=== PATIENT | female | born 1995 | race Caucasian/White ===

== ENCOUNTER → 2018-06-21 16:53 | Outpatient (CLI) | payer OTHER, SELFPAY ==
[2018-06-20 14:13] VITALS: BMI 24.5
[2018-06-21 20:07] LABS: Chlamydia Trachomatis by PCR Negative (Negative); Neisserai gonorrhoeae by PCR Negative (Negative); Probe Check PASS; Sample Adequacy Control PASS; Specimen Processing Control PASS
--- OUTSIDE RECORDS SUMMARY | 2018-08-07 14:24 | XMS RPT_ITS ---
:1995 Author Organization OHIP Care Team Providers Name Role Phone Lucero Ambrosio Attending Unavailable DARVIN, ZOE Referring Unavailable Marcanthony, Lucero Attending Unavailable Marcanthony, Lucero Referring Unavailable Marcanthony, Lucero Attending Unavailable DARVIN, ZOE Referring Unavailable Marcanthony, Lucero Attending Unavailable Marcanthony, Lucero Referring Unavailable DARVIN, ZOE Primary Care Unavailable Kahlil Lopez Attending Unavailable Saldana, Ben Primary Care Unavailable Pavithra East Attending Unavailable Saldana, Ben Primary Care Unavailable Pavithra East Admitting Unavailable Pavithra East Admitting Unavailable Pavithra East Attending Unavailable Saldana, Ben Primary Care Unavailable PROBLEMS PROBLEMS DATE TYPE CONDITION / CODE ATTENDING STATUS SOURCE 07/19/2018 Unknown Z3A.13 - 13 weeks Marcanthony, Active [place] gestation of [facility] / Hospital Z3A.13(ICD-10) Repository 07/19/2018 Unknown Z34.81 - Marcanthony, Active [place] Encounter for [facility] other normal Repository , first trimester / Z34.81(ICD-10) 07/19/2018 Unknown O23.41 - Marcanthony, Active [place] Unspecified [facility] infection of Hospital urinary tract in Repository , first trimester / O23.41(ICD-10) 07/19/2018 Unknown B95.1 - Hebert, Active [place] Streptococcus, [facility] group B, as the Hospital cause of diseases Repository classified elsewhere / B95.1(ICD-10) 06/21/2018 Unknown Z34.90 - Hebert, Active [place] Encounter for [facility] normal , Repository unspecified, unspecified trimester / Z34.90(ICD-10) PROCEDURES PROCEDURES No Procedure Records FoundRESULTS RESULTS CBC W/DIFF, AUTOMATED Collected: 07/19/2018 Status: F Source: [place] 4:51 PM [facility] TYPE CODE TESTS RESULT OUT OF RANGE REFERENCE UNITS LAB L100.1000 4.4-11.0 K/mm3 Normal WBC 9.5 LAB L100.1200 4.2-5.4 M/mm3 Normal RBC 4.40 LAB L100.1300 12.0-15.0 g/dl Low HGB 11.3 LAB L100.1400 37-47 % Low HCT 35.7 LAB L100.1500 81-99 fL Normal MCV 81.1 LAB L100.1600 27.0-32.0 pg Low MCH 25.7 LAB L100.1700 32-36 g/gl Low MCHC 31.7 LAB L100.1810 11.6-14.6 % High RDW CV 15.3 LAB L100.1820 35.1-43.9 fl High RDW SD 45.3 LAB L100.1900 150-450 K/mm3 Normal PLT 283 LAB L100.2000 6.2-12.0 fl Normal MPV 10.0 LAB L100.2100 47-70 % Normal NEUT% 56.0 LAB L100.2200 19-41 % Normal LY% 33.1 LAB L100.2300 0-10 % Normal MONO% 8.7 LAB L100.2400 0-5 % Normal EO% 1.5 LAB L100.2500 0-1 % Normal BASO% 0.5 LAB L100.2550 0.0-0.9 % Normal IM GRAN % 0.200 Result Comment: IG% - Immature Granulocytes (promyelocytes, myelocytes and metamyelocytes) > 1% indicates that a LEFT SHIFT is Present. LAB L100.2620 2.0-7.7 X10 3/uL Normal Absolute Neut 5.3 LAB L100.2720 0.83-4.51 X10 3/ul Normal Absolute Lymph 3.13 Performed By: #### L100.0100 #### [facility] [address] [place], [address] RUBELLA IGG Collected: 07/19/2018 Status: F Source: [place] 4:51 PM [facility] TYPE CODE TESTS RESULT OUT OF RANGE REFERENCE UNITS LAB L509.4000 IU/mL Normal Rubella IgG 39.8 Result Comment: Antibody results Interpretation of Immune Status < 5 IU/ml Presumed Non-immune 5 - < 10 IU/ml Equivocal > or = 10 IU/ml Presumed Immune Performed By: #### L509.4000, L3890.6005 #### [facility] [id number] HIV - [facility] Collected: 07/19/2018 Status: F Source: [place] 4:51 PM [facility] TYPE CODE TESTS RESULT OUT OF RANGE REFERENCE UNITS LAB L3890.6005 Nonreactive Normal HIV - [facility] Non-Reactive Performed By: #### L509.4000, L3890.6005 #### [facility] [address] [place] [address] [id number] TYPE AND SCREEN Collected: 07/19/2018 Status: F Source: [place] 4:51 PM [facility] Order Comment: Reason for Type AND Screen/Red Cells: TYPE CODE TESTS RESULT OUT OF RANGE REFERENCE UNITS LAB B10.0800 O Normal BLOOD TYPE GEL POSITIVE LAB B100.4000 Normal Antibody NEGATIVE Screen Performed By: #### B101.7450 #### [facility] [address] RAPID PLASMIN REAGIN Collected: 07/19/2018 Status: F Source: [place] (RPR) 4:51 PM [facility] TYPE CODE TESTS RESULT OUT OF REFERENCE UNITS RANGE LAB L700.5000 NONREACTIVE NONREACTIVE Normal RPR Performed By: #### L700.5000 #### [facility]. [facility] [id number] HEPATITIS B SURFACE Collected: 07/19/2018 Status: F Source: [place] AG 4:51 PM [facility] TYPE CODE TESTS RESULT OUT OF RANGE REFERENCE UNITS LAB L3100.0400 Negative Normal HB Negative SURF AG Result Comment: Performed at: - [facility] [address] [id number] [place] Follower: Yobani Humphreys PhD, Phone: [phone] Performed By: #### L3100.0390 #### [facility] (refer to report for specific site) refer to report for address and phone number CENTRAL OFFICE OPERATOR SUPERVISOR OFFICE VISIT Observed: 07/19/2018 Status: F Source: [place] REPORT 4:35 PM [facility] [address] [place] [address] OFFICE VISIT Date of Service: 07/19/18 MR#: [id number] Acct: [id number] Name: HAMILTONBOONE M Rep #: [id number] : 1995 Provider: Lucero Ambrosio MD Age/Sex: 23/F [place] [facility] [place]: Signed Intake Vital Signs07/19/18 Body Mass Index (BMI) 24.5 07/19/18 Height 5 ft 2 in 07/19/18 Weight: 142 lb 07/19/18 Body Mass Index (BMI) 25.9 07/19/18 Blood Pressure 122/68 H Intake Visit Reasons: OB Chief Complaint: est ob Self Propelled Hot Mix Roller Operator Required: No Is patient in pain?: No Allergies No Known Allergies Allergy (Verified 07/19/18 16:15) Medications vitamin#30 30 mg iron-10 mg iron-folic acid 1 mg- omg3 capsule cap PO cap 06/20/18 [History Confirmed 07/19/18] Last Menstral Period: 04/14/18 Zika: Zika virus screening: Negative : No PFSH PFSH Family History Grandmother Cancer Melanoma Unknown Hypertension Social History Smoking Status: Never smoker alcohol intake: never substance use type: does not use caffeine: Yes what type of physical activity do you participate in: walking seatbelt use: always do you feel safe at home: Yes 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 DatName GA/WeeksOutcome Route Bth WeigInhollandt Thad LgAnesthesDel LocaProviderFOB e ht en ia tn Unknown 2016 [address] Home bir ah th - ful th l term HPI OB: Details: BOONE VILLASENOR is a 23 year old who presents for routine OB visit. OB Visit FRED Calculator Estimated Delivery Date 01/19/19 Based on LMP (certain) 04/14/18 Current WG 13w 5d Number 1 Expected Delivery Route/Plan Specific Issue/Plans flu vaccine: declined tdap vaccine: [] rhogam: [] LARC form signed: [] labor support person: [] pain management: [] cut cord/dad catch: [] : [] PP control planned: [] discussed possible routes of delivery and associated risks: [] special requests: [] Initial Weight: Not Recorded Date Weight BP Urine PrFHR FuHt Pres MoCTX DilationFetal StVisit NoProviderComments E ot v te GA G Effac lucose ed Visit Notes Visit Date: 07/19/18 no vb cramping Lucero Ambrosio MD on 07/19/18 Visit Date: 06/20/18 No visit notes to display ACOG First Trimester First Trimester: Desire for , Alcohol, Tobacco Cessation, Illicit/Recreational Drug/Substance Use, Intimate Partner Violence, Barriers to care, Unstable Housing, Communication Barriers, Environmental/Work Hazards, Anticipated Course of Care, Toxoplasmosis Precations, Use of Any medications, Sexual activity, Exercise, Dental Care, Sauna/Hot tub use, Seat Belt use, Childbirth classes/Hospital facilities, , Travel, Indications for US and Screening for Aneuploidy Diagnostics Diagnostics Labs Chlam trachomat DNA PCR Negative (Negative) 06/21/18 N.gonorrhoeae DNA (PCR) Negative (Negative) 06/21/18 Details: HIV: Urine Culture: Sequential Screen: NIPT Screen: Results [id number] Office Urine Glucose Negative Last Edit by Brenda Serrano on 07/19/18 16:17 Office Urine Protein Negative Last Edit by Brenda Serrano on 07/19/18 16:17 Assessment AND Plan Problems 1. 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 anatomy us ordered. 2. Encounter for supervision of other normal in first trimester Z34.81 FRED 01/19/19 PC kenia Melania 3. Group B Streptococcus urinary tract infection affecting in first trimester O23.41; B95.1 treated, plan antibiotics in labor Plan ACOG trimester education reviewed and updated. see problem list details for updated plan management information and see below for orders placed at this visit. GA appropriate handout given. Orders Orders: Coding Level of Care Code OB Routine Diagnoses 13 weeks gestation of Z3A.13 Weeks of gestation: 13 weeks Encounter for supervision of other normal in first trimester Z34.81 Normal : other normal Trimester: first trimester Group B Streptococcus urinary tract infection affecting in first trimester O23.41; B95.1 Trimester: first trimester 07/19/18 1635 <Electronically signed by Lucero Ambrosio MD> Date Lucero Ambrosio MD Cosigner Signature: Date (if applicable) CC: CT/NG [facility] BY PCR Collected: 06/21/2018 Status: F Source: [place] 6:04 PM [facility] TYPE CODE TESTS RESULT OUT OF RANGE REFERENCE UNITS LAB L8200.2100 Negative Normal Chlam Negative Trac PCR LAB L8200.2200 Negative Normal NG by Negative PCR Performed By: #### L8200.2000 #### [facility] [address] [place], [address] Observed: 06/21/2018 Status: F Source: [place] CULTURE, URINE 6:04 PM [facility] Urine Culture ORGANISM 1: Streptococcus agalactiae (B) [place] Count <1000 Streptococcus agalactiae (B): REACTION Ampicillin $ <=0.25 S Inducable Clindamycin Resistan - Linezolid $$$$ <=2 S Vancomycin $ 0.5 S (NF) indicates non-formulary drug at [facility]. Approval by Infectious Disease Specialist required before non-formulary drugs may be ordered and/or dispensed. * CLSI guidelines does not recommend testing of cephalosporins. This interpretation is deduced from Beta-lactam/penicillin results. Performed By: #### M100.0650 #### [facility] [address] [place], [address] CENTRAL OFFICE OPERATOR SUPERVISOR OFFICE VISIT Observed: 06/20/2018 Status: F Source: [place] REPORT 4:15 PM [facility] [address] [place] [address] OFFICE VISIT Date of Service: 06/20/18 MR#: [id number] Acct: [id number] Name: BOONE VILLASENOR Rep #: [id number] : 1995 Provider: Lucero Ambrosio MD Age/Sex: 23/F [place] [facility] Status: Signed Intake Vital Signs06/20/18 Height 5 ft 2 in 06/20/18 Weight: 134 lb 06/20/18 Body Mass Index (BMI) 24.5 06/20/18 Blood Pressure 110/62 Intake Visit Reasons: NEW OB LMP 04/14/2018 Chief Complaint: NEW OB Self Propelled Hot Mix Roller Operator Required: No Is patient in pain?: No Allergies No Known Allergies Allergy (Unverified 06/20/18 14:14) Medications vitamin#30 30 mg iron-10 mg iron-folic acid 1 mg- omg3 capsule cap PO cap 06/20/18 [History Confirmed 06/20/18] Last Menstral Period: 04/14/18 Zika: Zika virus screening: Negative : No PFSH PFSH Family History Grandmother Cancer Melanoma Unknown Hypertension Social History Smoking Status: Never smoker alcohol intake: never substance use type: does not use caffeine: Yes what type of physical activity do you participate in: walking seatbelt use: always do you feel safe at home: Yes 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 DatName GA/WeeksOutcome Route [facility] Oneil LgAnesthesD LocaProviderFOB e ht en th ia tn Unknown 2017 Lil live birNSVD Home bir ah th - ful th l term HPI NEW OB LMP 04/14/2018: Details: BOONE VILLASENOR is a 23 year old who presents for New OB visit. OB Visit FRED Calculator Estimated Delivery Date 01/19/19 Based on LMP (certain) 04/14/18 Current WG 9w 4d Number 1 Comments: Limited transvaginal ultrasound performed to confirm EDC and viability. CRL is 20 mm measuring 9w5d which is consistent with LMP. FHTs 160. no gross abnormalities noted. Expected Delivery Route/Plan Specific Issue/Plans flu vaccine: declined tdap vaccine: [] rhogam: [] LARC form signed: [] labor support person: [] pain management: [] cut cord/dad catch: [] : [] PP control planned: [] discussed possible routes of delivery and associated risks: [] special requests: [] Initial Weight: Not Recorded Date Weight BP Urine PrFHR FuHt Pres MoCTX DilationFetal StVisit NoProviderComments E ot v te [place] G Effac lucose ed Menstrual History Last Menstral Period: 04/14/18 Reported LMP: definite Normal amount/duration: Yes On hormonal BC at conception: No Antepartum Record Genetic Screening: Congenital Heart Defect: Other, Neural Tube Defect: Other, Hemoglobinopathy Or Carrier: Other, Cystic Fibrosis: Other, Chromosome Abnormality: Other, Kevin-Sachs: Other, Hemophilia: Other, Intellectual Disability/Autism: Other, Recurrent Loss/Stillbirth: Other, Other Structural Defect: Other, Other Genetic Disease: Other, Maternal Metabolic Disorder: Other Infection History: Live with someone with TB or Exposed to TB: No, Patient or Partner has history of Genital Herpes: No, Rash or Viral illness since last mentrual period: No, Prior GBS-Infected child: No, History of STD: No, HIV Infection: No, History of Hepatitis: No, Recent travel outside of [place]: No, Concern for Hep exposure: No, Varicella immune: Yes Medical History Medical History: Negative: Diabetes, Hypertension, Heart disease, Auto-immune disorder, Kidney disease/UTI, Neurologic/epilepsy, Psychiatric, Depression/ depression, Hepatitis/liver disease, Varicosities/phlebitis, Thyroid dysfunction, Trauma/domestic violence, History of blood transfusions, D (Rh) Sensitized, Pulmonary (e.g.,TB,Asthma), Seasonal allergies, Drug/latex allergies/reactions, Breast, Drywall Finishing Foreman surgery, Operations/hospitalizations, Anesthetic complications, History of abnormal pap, Uterine anomaly/vasquez, Infertility, Anti-retroviral treatment, Relevant family history, Other ACOG First Trimester First Trimester: Desire for , Alcohol, Tobacco Cessation, Illicit/Recreational Drug/Substance Use, Intimate Partner Violence, Barriers to care, Unstable Housing, Communication Barriers, Environmental/Work Hazards, Anticipated Course of Care, Nurtrition and weight gain, Toxoplasmosis Precations, Use of Any medications, Sexual activity, Exercise, Dental Care, Sauna/Hot tub use, Seat Belt use, Childbirth classes/Hospital facilities, , Travel, Indications for US and Screening for Aneuploidy ROS Const Denies fever(s), Reports system reviewed and no additional complaints, except as docu, Reports fatigue Eyes Reports system reviewed and no additional complaints, except as docu ENT Reports system reviewed and no additional complaints, except as docu Card Denies chest pain, Denies shortness of breath Resp Reports system reviewed and no additional complaints, except as docu, Denies shortness of breath, Denies cough GI Reports nausea, Denies abdominal pain Reports system reviewed and no additional complaints, except as docu Musc Reports system reviewed and no additional complaints, except as docu Skin/Breast Reports system reviewed and no additional complaints, except as docu Neuro Yes system reviewed and no additional complaints, except as docu Psych Reports system reviewed and no additional complaints, except as docu Endo Reports fatigue, Reports system reviewed and no additional complaints, except as docu Exam Const General: healthy appearing, comfortable, no acute distress Orientation: alert [facility] Head: normal to inspection, atraumatic, normocephalic Ears: external ears normal, hearing grossly normal bilaterally Nose: nares normal, external nose normal Mouth: oral mucosae normal Teeth and gingiva: dentition normal Eyes General: appearance normal, both eyes and all related structures Neck Neck: no lymphadenopathy, supple, normal visual inspection Thyroid: thyroid normal Resp Effort AND Inspection: normal respiratory effort GI Inspection: normal to inspection Palpation: soft, no hepatosplenomegaly General: bladder normal to palpation External Female Exam: normal external appearance, normal appearance of the urethra Urethra: normal appearance of the urethra Speculum Exam - Vagina: normal appearance of the vagina, normal vaginal discharge Speculum Exam - Cervix: normal appearance of the cervix Bimanual Exam- Vagina AND Uterus: bladder normal to palpation, normal bimanual exam, uterus non-tender, other Bimanual Exam- Adnexa, other: adnexae non-tender Skin General: no rashes or lesions noted Neuro Motor: muscle tone normal throughout, no movement abnormalities noted Extrem General: normal to inspection, full ROM Assessment AND Plan Problems 1. Supervision of normal intrauterine in multigravida in first trimester Z34.81 2. 9 weeks gestation of Z3A.09 Orders Orders: Supplemental Info ACOG book given and patient encouraged to read about nutrition, exercise, weight gain, and food avoidance in . Coding Level of Care Code OB Routine Diagnoses Supervision of normal intrauterine in multigravida in first trimester Z34.81 Trimester: first trimester 9 weeks gestation of Z3A.09 Weeks of gestation: 9 weeks 06/20/18 1615 <Electronically signed by Lucero Ambrosio MD> Date Lucero Ambrosio MD Cosigner Signature: Date (if applicable) CC: IGP W/HPV RFX Collected: 09/18/2017 Status: F Source: [facility] [id number] 1:46 PM [facility] REPOSITORY TYPE CODE TESTS RESULT OUT OF RANGE REFERENCE UNITS LAB [id number]( INC) Normal See Ref Lab Diagnosis: Report Performed By: #### [id number] #### [place] [address] PATHOLOGY ([facility]) Observed: 09/18/2017 Status: F Source: [facility] 12:00 AM REPOSITORY FINAL GYNECOLOGIC CYTOLOGY REPORT [id number] SPECIMEN ADEQUACY Satisfactory for Evaluation. Endocervical cells/transformation zone component present. GENERAL CATEGORIZATION Negative for Intraepithelial Lesion or Malignancy CLINICAL HISTORY Comment: No LMP provided. SPECIMEN (A) SCREENING CERVICAL/ENDOCERVICAL LIQUID-BASED PAP Performed at [facility], [address] [place], [place] [address] Screened by: Signed Out by: DOUGLAS STARKS Branch Assistant Reported: 09/21/2017 Performed By: #### WHITE SHOE EXAMINER #### [facility] [address] [place] [address] ALLERGIES ALLERGIES DATE TYPE / CODE NAME / CODE REACTION SEVERITY SOURCE 07/19/2018 Drug No Known Unknown [place] Allergy/416 Allergies/X046443 [facility] 370249(SNOM 388(RXNORM) Hospital ED CT) Repository Drug/094680 No Known [facility] 003(SNOMED Allergies [facility] CT) System Repository Drug/461060 No Known [facility] 003(SNOMED Medication [facility]) Allergies System Repository ENCOUNTERS ENCOUNTERS ADMIT/DISCHARGE ACCOUNT NUMBER ADMITTING ENCOUNTER LOCATION SOURCE CLASS 07/19/2018 [id number] Ambulatory [facility] ding:LAB Repository 07/19/2018/07/19/19 [id number] Ambulatory BMSBuilding: [place] 19 BMS[facility] Repository 06/21/2018 [id number] Ambulatory [facility] ding:LABSPEC Repository 06/20/2018/06/20/20 [id number] Ambulatory BMSBuilding: [place] 18 BMS.[facility] Repository 09/26/2017/09/27/19 [id number] Ambulatory [address] [facility] :[facility] Repository 09/18/2017/09/19/[id number] ding:[facility] BANEY Repository 09/18/2017/09/19/[id number] [facility] rac[facility]: Room 1 PAYERS PAYERS ENCOUNTER GUARANTOR PAYER SUBSCRIBER SOURCE 07/19/2018 BOONE Greco [id number] Primary MELANIA EMSERDOB: [place] 1/2 [place] Insurance:MEDICAL [id number] [facility] [address]Ypq: (419) Number: Repository [phone] () [id number] Date:6875-34-43VT [address] [place] [address]HH: 07/19/2018 Secondary MELANIA EMSERDOB: [place] Insurance:STANDARD [id number] Number: [id number] Repository Date:7437-08-09[address] [place] [address]YJ: 07/19/2018 Tertiary NOT GIVENUNK [place] Insurance:SELF PAY [facility] Hospital Number: Effective Repository Date:2018-07-19 07/19/2018 BOONE Greco [id number] Primary MELANIA EMSERDOB: [place] 1/2 [place] Insurance:MEDICAL [id number] [facility] [address]Pnc: (419) Number: Repository [phone] () [id number] Date:7760-63-33GR [place] [id number]: 07/19/2018 Secondary MELANIA EMSERDOB: [place] Insurance:STANDARD [id number] Number: [id number] Repository Date:0260-09-75[facility] [place] [address]RA: 07/19/2018 Tertiary NOT GIVENUNK [place] Insurance:SELF PAY [facility] Hospital Number: Effective Repository Date:2018-07-19 06/21/2018 BOONE Fannie [id number] Primary MELANIA EMSERDOB: [place] 1/2 [place] Insurance:MEDICAL [id number] [facility] [address]Uel: (419) Number: Repository [phone] () [id number] Date:2385-07-36TZ [place] [id number]: 06/21/2018 Secondary MELANIA EMSERDOB: [place] Insurance:STANDARD [id number] Number: [id number] Repository Date:6738-34-53[address] [address]LPVLPAVMS DANIELLE [address]BZ: 06/21/2018 Tertiary NOT GIVENUNK [place] Insurance:SELF PAY [facility] Effective Repository Date:2018-06-21 06/20/2018 BOONE Greco [id number] Primary MELANIA EMSERDOB: [place] 1/2 [place] Insurance:MEDICAL [id number] [facility] [address]Ryt: (722) Number: Repository [phone] () [id number] Date:1927-30-32[address], [place] [address]WU: 06/20/2018 Secondary MELANIA EMSERDOB: [place] Insurance:STANDARD [id number] Number: [id number] Repository Date:5595-09-30Q[address] [place] [address]VB: 06/20/2018 Tertiary NOT GIVENUNK [place] Insurance:SELF PAY [facility] Number: Effective Repository Date:2018-05-16 09/26/2017 BOONE Greco Primary MELANIA R EMSERDOB: [place] EMSERDOB: Insurance:Medical [id number] [facility] Number: 12 [place] System 1/2 [place] Effective [place], [place] Repository [place], [place] Date:2017-09-12Tel: [phone]: [phone] () Name:[facility] ()Tel: (160) [address], [place] [phone] () [address]DH: 09/26/2017 Secondary MELANIA R EMSERDOB: [place] Insurance:STANDARD [id number] [facility] Number: 12 [place] System Effective [place], [place] Repository Date:2017-09-1209115Hzh: [phone] [phone] Name:CD:[id number] [address] (HP)Tel: [phone]) [phone], [place] [phone] (WP) [address]XG: 09/18/2017 BOONE Greco Primary MELANIA R EMSERDOB: [place] EMSERDOB: Insurance:Medical [id number] [facility] MutualPolicy Number: 07/11 [place] System 1/2 [place] Effective [place], [place] Repository [place], [place] Date:2017-09-18Tel: [phone]: [phone] [phone] (HP) Name:Medical [employer] ()Tel: (039) [address], [place] [phone] (WP) [phone]: 09/18/2017 Secondary MELANIA R EMSERDOB: [place] Insurance:STANDARD [id number] [facility] LIFEPolicy Number: 07/11 [place] System Effective [place], [place] Repository Date:2017-09-18Tel: [phone] Name:CD:[id number] BOX (HP)Tel: [phone], [place] [phone] (WP) [id number]: 09/18/2017 BOONE Greco Primary MELANIA R EMSERDOB: [facility] EMSERDOB: Insurance:[facility] [id number] [facility] MEDICAL MUTUALPolicy 1/2 REHMAN System /2 [place]MAN Number: Effective [place], [place] Repository [place], [place] Date:2017-09-18Tel: [phone]: [phone] (HP) Name:[id number] O (HP)Tel: [phone]) [address], [place] [phone] (WP) [phone]: 09/18/2017 Secondary MELANIA Obdulia EMSERDOB: [facility] Insurance:1500 [id number] [facility] [place] System Number: Effective [place] Repository Date:2017-09-1836503Ync: [phone] Name:CD:[id number] O ()Tel: [phone] TTC [phone] [place], [phone] (WP) [place] [address]UQ: [phone]
== END ==
PROVIDERS: Referring Provider Obstetrics & Gynecology; Visit Provider Obstetrics & Gynecology
DX: Z34.90 Encounter for supervision of normal pregnancy, unspecified, unspecified trimester (principal)
CPT/HCPCS: 87077; 87086; 87088; 87186; 87491; 87591

== ENCOUNTER → 2018-07-19 16:39 | Outpatient (CLI) | payer OTHER, SELFPAY ==
[2018-07-19 16:15] VITALS: BMI 24.5
[2018-07-19 17:32] LABS: Absolute Lymphocyte Count 3.13 X10^3/ul (0.83-4.51); Absolute Neutrophil Count 5.3 X10^3/uL (2.0-7.7); Basophil# 0.05 X10^3/uL; Basophil% 0.5 % (0-1); Eosinophil# 0.14 X10^3/uL; Eosinophils% 1.5 % (0-5); Hematocrit 35.7 % (37-47); Hemoglobin 11.3 g/dl (12.0-15.0); Lymphocyte # 3.13 X10^3/ul (4.0); Lymphocyte % 33.1 % (19-41); Mean Corp Hgb Conc 31.7 g/gl (32-36); Mean Corpuscular Hgb 25.7 pg (27.0-32.0); Mean Corpuscular Volume 81.1 fL (81-99); Monocyte# 0.82 X10^3/uL; Monocyte% 8.7 % (0-10); Neutrophil # 5.29 X10^3/uL (2.7-7.7); POSITIVE COUNT NO; POSITIVE DIFFERENTIAL NO; POSITIVE MORPHOLOGY NO; Platelet Count 283 K/mm3 (150-450); RBC Distribution Width CV 15.3 % (11.6-14.6); RBC Distribution Width SD 45.3 fl (35.1-43.9); White Blood Count 9.5 K/mm3 (4.4-11.0)
[2018-07-19 18:43] LABS: HIV - WCH Non-Reactive (Nonreactive); Rubella IgG 39.8 IU/mL
[2018-07-20 03:32] LABS: Rapid Plasmin Reagin (RPR) NONREACTIVE (NONREACTIVE)
[2018-07-21 20:23] LABS: HEPATITIS B SURFACE AG Negative (Negative)
== END ==
PROVIDERS: Family Provider Family Medicine; PCP Family Medicine; Referring Provider Obstetrics & Gynecology; Visit Provider Obstetrics & Gynecology
DX: Z34.90 Encounter for supervision of normal pregnancy, unspecified, unspecified trimester (principal)
CPT/HCPCS: 36415; 85025; 86592; 86703; 86762; 86850; 86900; 87340

== ENCOUNTER → 2018-10-15 | Outpatient (CLI) | payer OTHER, SELFPAY ==
[2018-10-15 16:14] VITALS: BMI 27.7
[2018-10-15 17:37] LABS: Absolute Lymphocyte Count 2.87 X10^3/ul (0.83-4.51); Basophil# 0.01 X10^3/uL; Basophil% 0.1 % (0-1); Eosinophil# 0.11 X10^3/uL; Eosinophils% 1.1 % (0-5); Hematocrit 29.2 % (37-47); Hemoglobin 9.1 g/dl (12.0-15.0); Lymphocyte # 2.87 X10^3/ul (4.0); Lymphocyte % 29.2 % (19-41); Mean Corp Hgb Conc 31.2 g/gl (32-36); Mean Corpuscular Hgb 24.6 pg (27.0-32.0); Mean Corpuscular Volume 78.9 fL (81-99); Mean Platelet Vol. 10.3 fl (6.2-12.0); Monocyte# 0.81 X10^3/uL; Monocyte% 8.2 % (0-10); Neutrophil # 6.01 X10^3/uL (2.7-7.7); Neutrophil % 61.2 % (47-70); Platelet Count 273 K/mm3 (150-450); RBC Distribution Width CV 13.4 % (11.6-14.6); RBC Distribution Width SD 37.2 fl (35.1-43.9); White Blood Count 9.8 K/mm3 (4.4-11.0)
[2018-10-15 17:40] LABS: POSITIVE COUNT NO; POSITIVE DIFFERENTIAL NO; POSITIVE MORPHOLOGY NO
[2018-10-15 18:07] LABS: Glucose Challenge Gest 1H 50g 98 mg/dL (70-140)
== END | disposition home or self-care (01) ==
LOC: LAB 16:54
PROVIDERS: Family Provider Family Medicine; PCP Family Medicine; Referring Provider Obstetrics & Gynecology; Visit Provider Obstetrics & Gynecology
DX: Z34.90 Encounter for supervision of normal pregnancy, unspecified, unspecified trimester (principal)
CPT/HCPCS: 36415; 82950; 85025

== ENCOUNTER → 2018-12-07 | Outpatient (CLI) | payer OTHER, SELFPAY ==
[2018-11-20 16:33] VITALS: BMI 27.7
[2018-12-07 10:56] LABS: Absolute Lymphocyte Count 3.12 X10^3/ul (0.83-4.51); Absolute Neutrophil Count 7.6 X10^3/uL (2.0-7.7); Basophil# 0.03 X10^3/uL; Basophil% 0.3 % (0-1); Eosinophil# 0.16 X10^3/uL; Eosinophils% 1.4 % (0-5); Hematocrit 30.3 % (37-47); Hemoglobin 9.1 g/dl (12.0-15.0); Lymphocyte # 3.12 X10^3/ul (4.0); Lymphocyte % 26.5 % (19-41); Mean Corpuscular Volume 73.2 fL (81-99); Mean Platelet Vol. 10.2 fl (6.2-12.0); Monocyte# 0.81 X10^3/uL; Monocyte% 6.9 % (0-10); Neutrophil # 7.61 X10^3/uL (2.7-7.7); Neutrophil % 64.6 % (47-70); Platelet Count 274 K/mm3 (150-450); RBC Distribution Width CV 14.9 % (11.6-14.6); RBC Distribution Width SD 39.9 fl (35.1-43.9); Red Blood Count 4.14 M/mm3 (4.2-5.4); White Blood Count 11.8 K/mm3 (4.4-11.0)
[2018-12-07 10:59] LABS: Differential Indicated SCAN CRITERIA MET; POSITIVE COUNT NO; POSITIVE DIFFERENTIAL NO; POSITIVE MORPHOLOGY YES
[2018-12-07 11:30] LABS: Anisocytosis 2+; Hypochromasia 1+; Platelet Estimate ADEQUATE (ADEQ); Polychromasia RARE
== END | disposition home or self-care (01) ==
LOC: LAB 10:27
PROVIDERS: Referring Provider Obstetrics & Gynecology; Visit Provider Obstetrics & Gynecology
DX: D50.9 Iron deficiency anemia, unspecified (principal)
CPT/HCPCS: 36415; 85025

== ENCOUNTER → 2018-12-11 | Outpatient (CLI) | payer OTHER, SELFPAY ==
[2018-12-07 11:01] VITALS: BMI 27.7
[2018-12-11 11:41] VITALS: BP 112/67; PULSE 88; RESP 16; TEMP 36.4; O2SAT 100; BMI 28.3
== END | disposition home or self-care (01) ==
PROVIDERS: Family Provider Family Medicine; PCP Family Medicine; Referring Provider Nurse Practitioner Women's Health; Visit Provider Nurse Practitioner Women's Health
DX: O99.019 Anemia complicating pregnancy, unspecified trimester (principal); D64.9 Anemia, unspecified; Z3A.00 Weeks of gestation of pregnancy not specified
CPT/HCPCS: 96365; 96366; J1756; J7050; A4216

== ENCOUNTER → 2018-12-21 | Outpatient (CLI) | payer OTHER, SELFPAY ==
[2018-12-11 11:41] VITALS: BMI 28.3
[2018-12-21 13:20] VITALS: BP 117/79; PULSE 99; RESP 16; TEMP 36.6; O2SAT 98; BMI 28.5
== END | disposition home or self-care (01) ==
LOC: MEDOUTP 12:59
PROVIDERS: Family Provider Family Medicine; PCP Family Medicine; Referring Provider Nurse Practitioner Women's Health; Visit Provider Nurse Practitioner Women's Health
DX: O99.019 Anemia complicating pregnancy, unspecified trimester (principal); D64.9 Anemia, unspecified; Z3A.00 Weeks of gestation of pregnancy not specified
CPT/HCPCS: 96365; 96366; J1756; J7050; A4216

== ENCOUNTER → 2018-12-25 10:00 | Outpatient (CLI) | payer OTHER, SELFPAY ==
[2018-12-21 13:20] VITALS: BMI 28.5
[2018-12-21 17:53] VITALS: BMI 28.5
[2018-12-25 10:36] VITALS: BP 110/64; PULSE 88; RESP 16; TEMP 36.6; O2SAT 97; BMI 29.0
== END ==
PROVIDERS: Referring Provider Nurse Practitioner Women's Health; Visit Provider Nurse Practitioner Women's Health
DX: O99.019 Anemia complicating pregnancy, unspecified trimester (principal); D64.9 Anemia, unspecified; Z3A.00 Weeks of gestation of pregnancy not specified
CPT/HCPCS: 96365; 96366; J1756; J7050; A4216

== ENCOUNTER → 2019-01-04 | Outpatient (CLI) | payer OTHER, SELFPAY ==
[2018-12-25 10:36] VITALS: BMI 29.0
[2019-01-04 16:21] LABS: Absolute Lymphocyte Count 2.89 X10^3/ul (0.83-4.51); Absolute Neutrophil Count 6.8 X10^3/uL (2.0-7.7); Basophil# 0.02 X10^3/uL; Basophil% 0.2 % (0-1); Differential Indicated SCAN CRITERIA MET; Eosinophil# 0.12 X10^3/uL; Eosinophils% 1.1 % (0-5); Hematocrit 34.5 % (37-47); Hemoglobin 10.6 g/dl (12.0-15.0); Lymphocyte # 2.89 X10^3/ul (4.0); Lymphocyte % 27.1 % (19-41); Mean Corp Hgb Conc 30.7 g/gl (32-36); Mean Corpuscular Volume 78.1 fL (81-99); Mean Platelet Vol. 10.7 fl (6.2-12.0); Monocyte# 0.77 X10^3/uL; Monocyte% 7.2 % (0-10); Neutrophil # 6.81 X10^3/uL (2.7-7.7); POSITIVE COUNT NO; POSITIVE DIFFERENTIAL NO; POSITIVE MORPHOLOGY YES; Platelet Count 223 K/mm3 (150-450); RBC Distribution Width CV 24.2 % (11.6-14.6); RBC Distribution Width SD 66.4 fl (35.1-43.9); Red Blood Count 4.42 M/mm3 (4.2-5.4); White Blood Count 10.7 K/mm3 (4.4-11.0)
[2019-01-04 16:41] LABS: Differential Comment SCANNED
== END | disposition home or self-care (01) ==
LOC: LAB 15:33
PROVIDERS: Referring Provider Obstetrics & Gynecology; Visit Provider Obstetrics & Gynecology
DX: O99.019 Anemia complicating pregnancy, unspecified trimester (principal); D64.9 Anemia, unspecified; Z3A.00 Weeks of gestation of pregnancy not specified
CPT/HCPCS: 36415; 85025

== ENCOUNTER 2019-01-12 03:50 | Inpatient (IN) | payer OTHER, SELFPAY ==
[2019-01-04 16:19] VITALS: BMI 29.0
[2019-01-12 04:20] VITALS: BMI 28.8
[2019-01-12 04:48] LABS: Absolute Lymphocyte Count 1.68 X10^3/ul (0.83-4.51); Absolute Neutrophil Count 8.2 X10^3/uL (2.0-7.7); Basophil# 0.01 X10^3/uL; Basophil% 0.1 % (0-1); Eosinophil# 0.02 X10^3/uL; Eosinophils% 0.2 % (0-5); Hematocrit 35.7 % (37-47); Hemoglobin 11.3 g/dl (12.0-15.0); Lymphocyte # 1.68 X10^3/ul (4.0); Mean Corp Hgb Conc 31.7 g/gl (32-36); Mean Corpuscular Hgb 24.8 pg (27.0-32.0); Mean Corpuscular Volume 78.3 fL (81-99); Mean Platelet Vol. 10.4 fl (6.2-12.0); Monocyte% 5.7 % (0-10); Neutrophil # 8.18 X10^3/uL (2.7-7.7); Neutrophil % 77.8 % (47-70); Platelet Count 247 K/mm3 (150-450); RBC Distribution Width CV 25.1 % (11.6-14.6); RBC Distribution Width SD 68.8 fl (35.1-43.9); Red Blood Count 4.56 M/mm3 (4.2-5.4); White Blood Count 10.5 K/mm3 (4.4-11.0)
[2019-01-12 04:53] LABS: Differential Indicated SCAN CRITERIA MET; POSITIVE COUNT NO; POSITIVE DIFFERENTIAL NO; POSITIVE MORPHOLOGY YES
[2019-01-12] MEDS: Lactated Ringers 1,000 ML 50 ML IV (04:57)
[2019-01-12 05:10] LABS: Anisocytosis 1+; Hypochromasia 1+; Microcytosis 1+; Polychromasia RARE
[2019-01-12] MEDS: Oxytocin 30 units/NS 500 ml 30 UNITS/500 ML IV.SOLN 334 UNITS IV (05:50)
--- NOTE | 2019-01-12 06:07 | HP.PCM_ITS ---
- Problem List (1) Active labor at term Status: Acute (2) Anemia in preg-unspec Status: Acute Comment: IV iron, repeat after infusions complete (3) Status: Acute Qualifiers: Comment: carrier, genetic, and tnd screening declined. anatomy us ordered. (4) Supervision of normal Status: Acute Qualifiers: Comment: PRR FRED 01/19/19 girl PC kenia Maynor (5) GBS (group B streptococcus) UTI complicating Status: Acute Qualifiers: Comment: treated, plan antibiotics in labor History Date of Admission: 01/12/19 Final FRED: 01/19/19 Gestational age: 39 Weeks and 0 Days History of this : This is a 23 year-old, , at 39 weeks gestational age presents in active labor. Patient presented at 5 to 6 cm wanting to go natural with minimal intervention. Patient had a culture that was GBS positive and and denies loss of fluid. She admits some spotting and regular contractions s tarting after midnight. Allergies No Known Allergies Allergy (Verified 01/12/19 04:21) Home Medications: Home Medications vitamin#30 30 mg iron-10 mg iron-folic acid 1 mg-omg3 capsule 1 cap PO DAILY cap 06/20/18 Smoking Status: Never smoker Number of Fetus(es): 1 Heart Tracin moderate variability reactive no decelerations category I tracing Canadian: regular History Past Pregnancies: Past Pregnancies Previous term vaginal delivery no complications Labs: Mom's Labs & Results 01/12/19 01/12/19 04:25 04:25 WBC 10.5 RBC 4.56 Hgb 11.3 L Hct 35.7 L MCV 78.3 L MCH 24.8 L MCHC 31.7 L RDW 25.1 H RDW Differential 68.8 H Plt Count 247 MPV 10.4 Immature Gran % (Auto) 0.200 Neut % (Auto) 77.8 H Lymph % (Auto) 16.0 L [place] % (Auto) 5.7 Eos % (Auto) 0.2 Baso % (Auto) 0.1 Absolute Neuts (auto) 8.2 H Absolute Lymphs (auto) 1.68 Total Counted Not Reportable Polychromasia RARE Hypochromasia 1+ Anisocytosis 1+ Microcytosis 1+ Blood Type O POSITIVE Antibody Screen NEGATIVE Course Did the patient receive Yes care? Labs Blood Type: O RH: POSITIVE RPR/VDRL/Syphilis Nonreactive Rubella status Immune HbSAg Negative Date Done: 07/19/18 Chlamydia Negative Gonorrhea Negative HIV/AIDS Non-Reactive Group B Strep: Positive Current Obstetrical History Gestational Diabetes No Incompetent Cervix No Infertility No IUGR No Macrosomia No Hypertension/Pre-eclampsia No Placenta Previa/Abruption No PTL/PROM No Uterine anomaly No Oligohydramnios No Polyhydramnios No Multiple gestation No Past Medical History Asthma No Diabetes No Hypertension No Heart disease No Mitral valve prolapse No Neurologic/Seizure disorder/ No Migraines Kidney disease No Liver disease No Varicosities No Clotting disorders/Hx of DVT No Thyroid Dysfunction No Other medical diseases No Psychiatric disorders No Major trauma No Abnormal PAP smear No Sleep apnea No Mammogram in the last 2 years No Social History Marital Status: Alleged father Maynor Hx Smoking No Smoking Status Never smoker Expected Infant Delivery Method: Spontaneous Vaginal Review of Systems Constitutional: Denies: Fever, Malaise Eyes: Denies: Blurred vision, Vision Change HEENT: Denies: Head Aches, Visual Changes Cardiovascular: Denies: Chest Pain, Palpitations Respiratory: Denies: Cough, Shortness of Breath, Wheezing Gastrointestinal: Denies: Abdominal Pain, Diarrhea, Nausea, Vomiting Genitourinary: Denies: Dysuria, Hematuria Musculoskeletal: Denies: Joint Pain, Muscle pain Skin: Denies: Lesions, Rash Neurological: Denies: Blurred vision, Focal weakness, Headaches Psychiatric: Denies: Anxiety, Depression Endocrine: Denies: Heat/ Cold Intolerance Hematologic/ Lymphatic: Denies: Easy Bruising, Easy Bleeding Physical Exam General: Alert, Cooperative, No apparent distress HEENT: Atraumatic, Normocephalic. Negative for: Thyromegaly, Lymphadenopathy Cardiovascular: Regular rate Lungs: Normal air movement Abdomen: Soft, Non Tender, Gravid Neurological: Deep Tendon Reflexes 2+/4 and Symmetrical, Neuro grossly intact. Negative for: Clonus HIGH [employer]CHO[employer] VICE PRINCIPAL: Normal external genitalia. Negative for: Vulvar lesions Estimated gestational size: Appropriate for gestational size Presentation: Cephalic Cervix Dilation (cm): 5.5 Assessment/Plan All Active Problems (Last Reviewed 01/04/19 @ 16:01 by Ela Figueroa) Active labor at term (Acute) Anemia in preg-unspec (Acute) (Acute) Supervision of normal (Acute) GBS (group B streptococcus) UTI complicating (Acute) GBS urine positive (Resolved) This is a 23 year-old, at 39 weeks gestational age presents in active labor Patient presents IAL, plan expectant management for , pitocin/AROM PRN if needed. Pain management: Minimal intervention. GBS positive plan IV PCN. Management of any complications: None I have reviewed the [facility] and made any clinically relevant updates..
--- NOTE | 2019-01-12 06:10 | PCM.OPRPT ---
Problem List (1) Active labor at term Status: Acute (2) Anemia in preg-unspec Status: Acute Comment: IV iron, repeat after infusions complete (3) Status: Acute Qualifiers: Comment: carrier, genetic, and tnd screening declined. anatomy us ordered. (4) Supervision of normal Status: Acute Qualifiers: Comment: PRR FRED 01/19/19 girl PC kenia Myanor (5) GBS (group B streptococcus) UTI complicating Status: Acute Qualifiers: Comment: treated, plan antibiotics in labor Vaginal Delivery Maternal Presentation: Active Labor 23-year-old G2, P1 at 39 weeks presents in active labor Amniotic Membrane Rupture Type: Artificial Amniotic Fluid Description: Clear Final FRED: 01/19/19 Gestational age: 39 Weeks and 0 Days Date of Procedure: 01/12/19 Pre-Operative Diagnosis: In active labor Post-Operative Diagnosis: Same Surgery/ Procedure Performed: Spontaneous Vaginal Delivery Type of Anesthesia: None Description of Procedure: Patient began pushing and delivered the head in the JEAN-PAUL presentation. The head was delivered atraumatically . The anterior and posterior shoulders delivered without complication followed by the rest of the and the infant was placed on the maternal abdomen. Delayed cord clamping was employed for approximately 60 seconds. Cord was clamped and cut and gentle traction was applied to the cord and the placenta delivered spontaneously immediately following it was noted to be intact with three-vessel cord. The perineum and vagina were inspected and noted to have a first-degree perineal laceration that was repaired in the usual fashion with 3-0 Vicryl repeat after injecting with 1% lidocaine. EBL was 200 cc. Patient and tolerated delivery well. Presentation: JEAN-PAUL Placental Delivery Description: Spontaneous Placenta Disposition: [facility] Cord Vessel Description: 3 Vessels Cord Entanglement: None A gender: Female Laceration: Perineal Extension/lac, 1st degree Medications given after delivery: IV Pitocin Complications: None
[2019-01-12] MEDS: Oxytocin 30 units/NS 500 ml 30 UNITS/500 ML IV.SOLN 167 UNITS IV (06:20)
--- NOTE | 2019-01-12 09:03 | NURSING ---
patient had moderate gush of blood with multiple small stringy clots weighing 173ml upon fundal exam. Fundus remains firm 1 below.
[2019-01-12 12:50] VITALS: BP 106/65; PULSE 89; RESP 16; TEMP 36.9; O2SAT 97
[2019-01-12 16:00] VITALS: BP 119/62; PULSE 70; RESP 13; TEMP 36.5
[2019-01-12 20:00] VITALS: BP 107/63; PULSE 63; RESP 16; TEMP 37
[2019-01-12 23:00] VITALS: BP 107/53; PULSE 62; RESP 16; TEMP 36.6
[2019-01-13 06:00] VITALS: BP 90/49; PULSE 58; RESP 16; TEMP 36.4
--- NOTE | 2019-01-13 07:29 | PCM.PN.OB ---
Patient Problems: Active and Suspected Problems (Last Reviewed 01/04/19 @ 16:01 by Ela Figueroa) Active labor at term (Acute) Subjective: doing well no complaints pain controlled no CP SOB N V ambulating well tolerating po lochia moderate, going well - Physical Exam General: Alert, Oriented x3 Vital Signs Temp Pulse Resp BP Pulse Ox 97.5 F L 58 L 16 90/49 L 97 01/13/19 06:00 01/13/19 06:00 01/13/19 06:00 01/13/19 06:00 01/12/19 12:50 Oxygen Delivery Method Room Air Weight: 157 lb 12.8 oz Body Mass Index (BMI) 28.8 Intake and Output for Last 24 Hours 01/11/19 01/12/19 01/13/19 23:59 23:59 23:59 Output Total 1200 / 1200 Balance -1200 / -1200 Medical Necessity - Tobacco Use Smoking Status: Never smoker Assessment/Plan All Active Problems (Last Reviewed 01/04/19 @ 16:01 by Ela Figueroa) Active labor at term (Acute) Anemia in preg-unspec (Acute) (Acute) Supervision of normal (Acute) GBS (group B streptococcus) UTI complicating (Acute) GBS urine positive (Resolved) s/p PPD # 1 1. routine post delivery care 2. breast feeding- support given 3. rh positive 4. rubella immune
[2019-01-13 09:41] VITALS: BP 105/52; PULSE 63; RESP 18; TEMP 36.4
[2019-01-13 13:47] VITALS: BP 110/66; PULSE 96; RESP 18; TEMP 36.8
[2019-01-13 20:00] VITALS: BP 126/69; PULSE 74; RESP 16; TEMP 36.8
[2019-01-14 02:00] VITALS: BP 115/62; PULSE 72; RESP 16; TEMP 36.3
--- NOTE | 2019-01-14 07:35 | PCM.PN.OB ---
Patient Problems: Active and Suspected Problems (Last Reviewed 01/04/19 @ 16:01 by Ela Figueroa) Active labor at term (Acute) Subjective: doing well no complaints pain controlled no CP SOB N V ambulating well tolerating po lochia moderate, going well - Physical Exam General: Alert, Oriented x3 Abdomen: Soft, Non Tender, Non-Distended, - - FF below U Vital Signs Temp Pulse Resp BP Pulse Ox 97.4 F L 72 16 115/62 97 01/14/19 02:00 01/14/19 02:00 01/14/19 02:00 01/14/19 02:00 01/12/19 12:50 Oxygen Delivery Method Room Air Weight: 157 lb 12.8 oz Body Mass Index (BMI) 28.8 Intake and Output for Last 24 Hours 01/12/19 01/13/19 01/14/19 23:59 23:59 23:59 Output Total 1200 / 1200 Balance -1200 / -1200 Medical Necessity - Tobacco Use Smoking Status: Never smoker Assessment/Plan All Active Problems (Last Reviewed 01/04/19 @ 16:01 by Ela Figueroa) Active labor at term (Acute) Anemia in preg-unspec (Acute) (Acute) Supervision of normal (Acute) GBS (group B streptococcus) UTI complicating (Acute) GBS urine positive (Resolved) s/p PPD # 2 1. routine post delivery care 2. breast feeding- support given 3. rh positive 4. rubella immune 5. home today
--- NOTE | 2019-01-14 07:36 | DCINST_ITS ---
Additional Instructions: If you experience any of the following, contact your healthcare provider. * Bleeding that soaks a pad every hour for 2 hours * Fever 100.4 or higher * Unrelieved incision or abdominal pain * Swelling, redness, discharge or bleeding from your incision or episiotomy site * Your incision begins to separate * Problems urinating (including inability to urinate or burning while urinating). * Visual changes * Severe headache * Flu-like symptoms * Pain or redness in one of both of your breasts * Pain, warmth, tenderness or swelling in your legs, especially the calf area * Frequent nausea and vomiting * Symptoms of depression or anxiety If you experience any of the following, call 911 or go to the nearest Emergency Room. * Chest pain * Problems breathing * Seizure activity * Partial or complete paralysis of a body part, slurred speech, weakness or drooping of the face, or a sudden inability to walk or hold your balance Allergies/Adverse Reactions: Allergies No Known Allergies Allergy (Verified 01/12/19 04:21) Medications to take at Discharge vitamin#30 30 mg iron-10 mg iron-folic acid 1 mg-omg3 capsule 1 cap PO DAILY cap 06/20/18 Primary Care Physician: Romel Michael MD [Primary Care Provider] - Test Results: Test results from this visit will be discussed in further detail at your follow- up appointment, if applicable.
--- NOTE | 2019-01-14 07:36 | PCM.DCVAG ---
Additional Instructions: If you experience any of the following, contact your healthcare provider. Bleeding that soaks a pad every hour for 2 hours Fever 100.4 or higher Unrelieved incision or abdominal pain Swelling, redness, discharge or bleeding from your incision or episiotomy site Your incision begins to separate Problems urinating (including inability to urinate or burning while urinating). Visual changes Severe headache Flu-like symptoms Pain or redness in one of both of your breasts Pain, warmth, tenderness or swelling in your legs, especially the calf area Frequent nausea and vomiting Symptoms of depression or anxiety If you experience any of the following, call 911 or go to the nearest Emergency Room. Chest pain Problems breathing Seizure activity Partial or complete paralysis of a body part, slurred speech, weakness or drooping of the face, or a sudden inability to walk or hold your balance Allergies/Adverse Reactions: Allergies No Known Allergies Allergy (Verified 01/12/19 04:21) Medications to take at Discharge vitamin#30 30 mg iron-10 mg iron-folic acid 1 mg-omg3 capsule 1 cap PO DAILY cap 06/20/18 Primary Care Physician: Romel Michael MD [Primary Care Provider] - Test Results: Test results from this visit will be discussed in further detail at your follow-up appointment, if applicable.
[2019-01-14 07:44] VITALS: BP 113/67; PULSE 74; RESP 16; TEMP 36.2
== END 2019-01-14 09:00 | disposition home or self-care (01) | DRG 806 ==
PROVIDERS: Admitting Provider Obstetrics & Gynecology; Family Provider Family Medicine; PCP Family Medicine; Visit Provider Obstetrics & Gynecology
DX: O99.02 Anemia complicating childbirth (principal); O98.82 Other maternal infectious and parasitic diseases complicating childbirth; Z37.0 Single live birth; D64.9 Anemia, unspecified; B95.1 Streptococcus, group B, as the cause of diseases classified elsewhere; O70.0 First degree perineal laceration during delivery; Z3A.39 39 weeks gestation of pregnancy
CPT/HCPCS: 59025; 59050; 85025; 86850; 86900; 99218; J7120; G0378

== ENCOUNTER → 2019-02-18 13:08 | Outpatient (CLI) | payer OTHER, SELFPAY ==
[2019-02-18 08:56] VITALS: BMI 28.8
[2019-02-24 11:05] LABS: HPV Reflexed? NOT INDICATED
== END ==
PROVIDERS: Family Provider Family Medicine; PCP Family Medicine; Referring Provider Obstetrics & Gynecology; Visit Provider Obstetrics & Gynecology
DX: Z12.4 Encounter for screening for malignant neoplasm of cervix (principal)
CPT/HCPCS: 87624; 88175; G0145

== ENCOUNTER → 2020-02-10 | Outpatient (CLI) | payer OTHER, SELFPAY ==
[2020-02-10 09:22] VITALS: BMI 28.8
[2020-02-10 15:35] LABS: Amphetamine Urine VISTA NEGATIVE (<1000 ng/mL); Barbiturate Urine VISTA NEGATIVE (< 200 ng/mL); Benzodiazepine Urine VISTA NEGATIVE (< 200 ng/mL); Cocaine Urine VISTA NEGATIVE (< 300 ng/mL); Ecstacy Urine VISTA NEGATIVE (< 500 ng/mL); Methadone Urine VISTA NEGATIVE (< 300 ng/mL); PCP Urine VISTA NEGATIVE (< 25 ng/mL); THC Urine VISTA NEGATIVE (< 50 ng/mL); Vista UDS pH Range 6
[2020-02-10 17:19] LABS: Chlamydia Trachomatis by PCR Negative (Negative); Neisserai gonorrhoeae by PCR Negative (Negative); Probe Check PASS; Sample Adequacy Control PASS; Specimen Processing Control PASS
== END | disposition home or self-care (01) ==
LOC: LABSPEC 14:45
PROVIDERS: PCP Family Medicine; Referring Provider Obstetrics & Gynecology; Visit Provider Obstetrics & Gynecology
DX: Z34.90 Encounter for supervision of normal pregnancy, unspecified, unspecified trimester (principal)
CPT/HCPCS: 80307; 87077; 87086; 87088; 87186; 87491; 87591

== ENCOUNTER → 2020-03-06 | Outpatient (CLI) | payer OTHER, SELFPAY ==
[2020-03-06 13:27] VITALS: BMI 28.8
[2020-03-06 15:14] LABS: Absolute Lymphocyte Count 2.88 X10^3/uL (0.83-4.51); Absolute Neutrophil Count 5.3 X10^3/uL (2.0-7.7); Basophil# 0.04 X10^3/uL; Basophil% 0.4 % (0-1); Eosinophil# 0.19 X10^3/uL; Eosinophils% 2.1 % (0-5); Hematocrit 39.2 % (37-47); Lymphocyte # 2.88 X10^3/ul (4.0); Lymphocyte % 31.8 % (19-41); Mean Corp Hgb Conc 33.2 g/dL (32-36); Mean Corpuscular Hgb 29.8 pg (27.0-32.0); Mean Corpuscular Volume 89.9 fL (81-99); Mean Platelet Vol. 10.9 fl (6.2-12.0); Monocyte# 0.61 X10^3/uL; Monocyte% 6.7 % (0-10); NRBC Flagged by Analyzer 0 % (0-5); Neutrophil % 58.7 % (47-70); Platelet Count 228 K/mm3 (150-450); RBC Distribution Width CV 12.6 % (11.6-14.6); RBC Distribution Width SD 41.2 fl (35.1-43.9); Red Blood Count 4.36 M/mm3 (4.2-5.4); White Blood Count 9.1 K/mm3 (4.4-11.0)
[2020-03-09 09:31] LABS: HIV - WCH Non-Reactive (Nonreactive); Hepatitis B Surface Antigen Non-Reactive (Nonreactive); Hepatitis C Antibody Non-Reactive (Nonreactive); Rubella IgG 39.1 IU/mL
[2020-03-12 06:28] LABS: Rapid Plasmin Reagin (RPR) NONREACTIVE (NONREACTIVE)
== END | disposition home or self-care (01) ==
LOC: LAB 13:36
PROVIDERS: PCP Family Medicine; Referring Provider Obstetrics & Gynecology; Visit Provider Obstetrics & Gynecology
DX: Z34.90 Encounter for supervision of normal pregnancy, unspecified, unspecified trimester (principal)
CPT/HCPCS: 36415; 85025; 86592; 86703; 86762; 86803; 86850; 86900; 86901; 87340

== ENCOUNTER → 2020-04-20 | Outpatient (CLI) | payer OTHER, SELFPAY ==
[2020-03-06 13:27] VITALS: BMI 28.8
[2020-04-06 09:10] VITALS: BMI 28.8
--- NOTE | 2020-04-20 12:31 | US_ITS ---
STUDY: SECOND AND THIRD TRIMESTER OBSTETRICAL ULTRASOUND REASON FOR EXAM: Female, 25 years old anatomy LMP: 12/04/2019. TECHNIQUE: Transabdominal TECHNICAL QUALITY: Adequate. PRIOR ULTRASOUND: None. FINDINGS: There is a single intrauterine fetus. The fetus is in an transverse lie with the head on the maternal left side. There is demonstrated cardiac activity with a heart rate of 145 bpm. There is a normal amniotic fluid volume. The largest amniotic fluid pocket measures 5.9 cm x 3.9 cm. The amniotic fluid index (TD) is normal. The placenta is anterior in location and is not low lying. There are Grade 0 placental changes. The cervix measures 3.5 cm in length. The bilateral adnexal regions are normal. BIOMETRY: BPD: 4.6 cm: 19 weeks, 5 days HC: 17.4 cm: 19 weeks, 6 days AC: 14.8 cm: 20 weeks, 0 days FL: 2.9 cm: 19 weeks, 0 days CI: 78% FL/BPD: 64% FL/HC: FL/AC: 20% HC/AC: 1.17 age by current US: 19 weeks, 3 days. FRED by current US: 09/11/2020. Estimated weight: 304 grams, +/- 45 grams, 33 %. Age by LMP: 19 weeks, 5 days. FRED by LMP: 09/09/2020. ANATOMY: Gender: Male Cranium: Normal lateral ventricles. Normal choroid plexus. Normal cerebellum. Normal cisterna magna. Normal face, nose and lips. Chest: Normal 4-chamber heart. Abdomen/Pelvis: Normal diaphragm. Normal stomach. Normal abdominal wall. Normal cord insertion. Normal 3 vessel cord. Fullness of the renal pelves measuring 4 mm. Normal bladder. Spine: Normal cervical spine. Normal thoracic spine. Normal lumbar spine. Normal sacrum. Extremities: Normal bilateral upper extremities. Normal bilateral lower extremities. US/OB Anatomy Scan IMPRESSION: Single live intrauterine gestation with a mean gestational age of 19 weeks and 3 days. Minimal fullness of the renal pelves bilaterally. Electronically Signed: Luke Cole, at 14:05 EDT , Service support ,
== END | disposition home or self-care (01) ==
PROVIDERS: PCP Family Medicine; Referring Provider Obstetrics & Gynecology; Visit Provider Obstetrics & Gynecology
DX: Z34.80 Encounter for supervision of other normal pregnancy, unspecified trimester (principal)
CPT/HCPCS: 76805

== ENCOUNTER → 2020-06-01 08:13 | Outpatient (CLI) | payer OTHER, SELFPAY ==
[2020-05-11 13:31] VITALS: BMI 26.9
[2020-06-01 08:52] LABS: Absolute Lymphocyte Count 2.22 X10^3/uL (0.83-4.51); Absolute Neutrophil Count 5.6 X10^3/uL (2.0-7.7); Basophil# 0.03 X10^3/uL; Basophil% 0.3 % (0-1); Eosinophil# 0.17 X10^3/uL; Eosinophils% 1.9 % (0-5); Hematocrit 37.6 % (37-47); Hemoglobin 12.5 g/dL (12.0-15.0); Lymphocyte # 2.22 X10^3/ul (4.0); Lymphocyte % 25.3 % (19-41); Mean Corp Hgb Conc 33.2 g/dL (32-36); Mean Corpuscular Hgb 30.7 pg (27.0-32.0); Mean Corpuscular Volume 92.4 fL (81-99); Mean Platelet Vol. 10.2 fl (6.2-12.0); NRBC Flagged by Analyzer 0 % (0-5); Neutrophil # 5.61 X10^3/uL (2.7-7.7); Neutrophil % 63.8 % (47-70); Platelet Count 239 K/mm3 (150-450); RBC Distribution Width CV 12.4 % (11.6-14.6); RBC Distribution Width SD 41.8 fl (35.1-43.9); Red Blood Count 4.07 M/mm3 (4.2-5.4); White Blood Count 8.8 K/mm3 (4.4-11.0)
[2020-06-01 09:34] LABS: Glucose Challenge Gest 1H 50g 76 mg/dL (70-140)
== END ==
PROVIDERS: PCP Family Medicine; Referring Provider Obstetrics & Gynecology; Visit Provider Obstetrics & Gynecology
DX: Z34.90 Encounter for supervision of normal pregnancy, unspecified, unspecified trimester (principal); Z13.1 Encounter for screening for diabetes mellitus
CPT/HCPCS: 36415; 82950; 85025

== ENCOUNTER → 2020-09-01 | Outpatient (CLI) | payer OTHER, SELFPAY ==
[2020-08-24 10:07] VITALS: BMI 30.2
[2020-08-31 15:53] VITALS: BMI 29.8
== END | disposition home or self-care (01) ==
LOC: LABSPEC 14:24
PROVIDERS: PCP Family Medicine; Referring Provider Obstetrics & Gynecology; Visit Provider Obstetrics & Gynecology
DX: Z34.90 Encounter for supervision of normal pregnancy, unspecified, unspecified trimester (principal)
CPT/HCPCS: 87635; C9803; U0005; U0003

== ENCOUNTER 2020-09-07 15:40 | Inpatient (IN) | payer OTHER, SELFPAY ==
[2020-09-07] VITALS (12 sets, daily range): BP systolic 122–138; BP diastolic 58–80; PULSE 67–90; RESP 18; TEMP 36.3–37; BMI 28.8; BMI 29.5
--- NOTE | 2020-09-07 15:07 | US_ITS ---
STUDY: SECOND AND THIRD TRIMESTER OBSTETRICAL ULTRASOUND - LIMITED REASON FOR EXAM: Female, 25 years old. growth LMP: Unknown. PRIOR ULTRASOUND: 04/20/20 TECHNIQUE: Transabdominal ultrasound evaluation was performed. FINDINGS: There is a single intrauterine fetus. The fetus is in a cephalic presentation. There is demonstrated cardiac activity with a heart rate of 169 bpm. There is a normal amniotic fluid volume. The largest amniotic fluid pocket measures 4.41 cm. The amniotic fluid index (TD) is 9.71 cm. The placenta is anterior in location and is not low lying. There are Grade 2 placental changes. The cervix is not well visualized. BIOMETRY: BPD: 9.05 cm: 36 weeks, 4 days HC: 32.62 cm: 36 weeks, 6 days AC: 30.31 cm: 34 weeks, 1 days FL: 7.01 cm: 35 weeks, 6 days Age by LMP: 39 weeks, 5 days. FRED by LMP: 09/09/20. age by prior US: 39 weeks, 3 days. FRED by prior US: 09/11/20. age by current US: 36 weeks, 0 days. FRED by current US: 10/05/20. Estimated weight: 2640 grams, +/- 396 grams, 2.5 percentile. US/OB Limited With Biometrics IMPRESSION: Single live intrauterine gestation, as described above. Electronically Signed: Zhang Castro MD at 17:19 EST Tel , Service support ,
[2020-09-07] MEDS: Lactated Ringers 1,000 ML 50 ML IV (16:56)
--- NOTE | 2020-09-07 17:12 | HP.PCM_ITS ---
- Problem List (1) IUGR (intrauterine growth restriction) Status: Acute (2) Active labor at term Status: Acute (3) 35 weeks gestation of Status: Acute Comment: electronic covid test ordered 08/06/2020 (scheduled for 09/07/20 at 1340) (4) Anemia affecting Status: Acute Qualifiers: Comment: h/o iron infusions with last (5) COVID-19 affecting in third trimester Status: Acute Comment: Had all symptoms in June, but did not get tested. Recommend ASA daily. Discussed growth ultrasounds, but patient declines. (6) GBS (group B streptococcus) UTI complicating Status: Acute Qualifiers: Comment: s/p treatment. plan PCN in labor (7) Influenza vaccination declined Status: Acute Comment: 04/06/2020sc (8) Status: Acute Qualifiers: Comment: declines genetic, carrier and NTD, anatomy normal (9) Pyelectasis of fetus on ultrasound Status: Acute Comment: minimal renal pyelectasis 4mm:patient opted for no further US for this (10) Supervision of other normal Status: Acute Comment: PRR FRED 09/09/2020 boy PC JenaMontse trujilloery Spouse: Maynor (11) Uterine size-date discrepancy, third trimester Status: Acute Comment: 09/07- US ordered History Date of Admission: 01/12/19 Final FRED: 09/09/20 Gestational age: 39 Weeks and 5 Days History of this : This is a 25 year-old, , at 39 weeks gestational age presents IAL 5-6 cm with newly diagnosed IUGR on us today. Allergies No Known Allergies Allergy (Verified 09/07/20 10:43) Home Medications: Home Medications vitamin#30 30 mg iron-10 mg iron-folic acid 1 mg-omg3 capsule 1 cap PO DAILY cap 06/20/18 Smoking Status: Never smoker Alcohol: None Number of Fetus(es): 1 NST - FHR Rate Baby A Baseline: 120 Variability:: Moderate Accelerations:: 15 x 15 Decelerations:: None NST Reactive:: Yes FHR Category:: Category I Uterine Activity:: irregular History Past Pregnancies: Past Pregnancies previous term Labs: Mom's Current Diagnoses Uterine size-date discrepancy, third trimester 09/07/20 Mom's Labs & Results 09/07/20 09/07/20 16:55 16:55 WBC Pending RBC Pending Hgb Pending Hct Pending MCV Pending MCH Pending MCHC Pending RDW Std Deviation Pending RDW Coeff of Suzie Pending Plt Count Pending Neut % (Auto) Pending Absolute Neuts (auto) Pending Blood Type Cancelled Antibody Screen Cancelled Course Did the patient receive Yes care? Labs Blood Type: O RH: POSITIVE RPR/VDRL/Syphilis Nonreactive Rubella status Immune HbSAg Negative Date Done: 03/06/20 Chlamydia Negative Gonorrhea Negative HIV/AIDS Non-Reactive Group B Strep: Positive Current Obstetrical History Gestational Diabetes No Incompetent Cervix No Infertility No IUGR Yes Macrosomia No Hypertension/Pre-eclampsia No Placenta Previa/Abruption No PTL/PROM No Uterine anomaly No Oligohydramnios No Polyhydramnios No Multiple gestation No Past Medical History Asthma No Diabetes No Hypertension No Heart disease No Mitral valve prolapse No Neurologic/Seizure disorder/ No Migraines Kidney disease No Liver disease No Varicosities No Clotting disorders/Hx of DVT No Thyroid Dysfunction No Other medical diseases No Psychiatric disorders No Major trauma No Abnormal PAP smear No Sleep apnea No Mammogram in the last 2 years No Social History Marital Status: Alleged father Maynor Hx Smoking No Smoking Status Never smoker Expected Delivery Method: Spontaneous Vaginal Review of Systems Constitutional: Denies: Fever, Malaise Eyes: Denies: Blurred vision, Vision Change HEENT: Denies: Head Aches, Visual Changes Cardiovascular: Denies: Chest Pain, Palpitations Respiratory: Denies: Cough, Shortness of Breath, Wheezing Gastrointestinal: Denies: Abdominal Pain, Diarrhea, Nausea, Vomiting Genitourinary: Denies: Dysuria, Hematuria Musculoskeletal: Denies: Joint Pain, Muscle pain Skin: Denies: Lesions, Rash Neurological: Denies: Blurred vision, Focal weakness, Headaches Psychiatric: Denies: Anxiety, Depression Endocrine: Denies: Heat/ Cold Intolerance Hematologic/ Lymphatic: Denies: Easy Bruising, Easy Bleeding Physical Exam Vitals: Vital Signs Temp Pulse BP 98.0 F 74 138/72 H 09/07/20 16:45 09/07/20 16:45 09/07/20 16:45 General: Alert, Cooperative, No apparent distress HEENT: Atraumatic, Normocephalic. Negative for: Thyromegaly, Lymphadenopathy Cardiovascular: Regular rate Lungs: Normal air movement Abdomen: Soft, Non Tender, Gravid Neurological: Deep Tendon Reflexes 2+/4 and Symmetrical, Neuro grossly intact. Negative for: Clonus [employer] OPERATOR: Normal external genitalia. Negative for: Vulvar lesions Estimated gestational size: Small for gestational age Presentation: Cephalic Cervix Dilation (cm): 5.5 Station: -1 Effacement (%): 70 Assessment/Plan All Active Problems (Last Reviewed 09/07/20 @ 10:43 by Brenda Serrano) IUGR (intrauterine growth restriction) (Acute) Active labor at term (Acute) Uterine size-date discrepancy, third trimester (Acute) 35 weeks gestation of (Acute) COVID-19 affecting in third trimester (Acute) Pyelectasis of fetus on ultrasound (Acute) Influenza vaccination declined (Acute) GBS (group B streptococcus) UTI complicating (Acute) Anemia affecting (Acute) Supervision of other normal (Acute) (Acute) Active labor at term (Resolved) Anemia in preg-unspec (Resolved) GBS (group B streptococcus) UTI complicating (Resolved) GBS urine positive (Resolved) (Resolved) Supervision of normal (Resolved) This is a 25 year-old, at 39 weeks gestational age presents IAL. Patient presents IAL, plan expectant management for , pitocin/AROM PRN if needed. Pain management: Refers minimal intervention. GBS positive plan IV PCN. Management of any complications: IUGR I have reviewed the [facility] and made any clinically relevant updates.
[2020-09-07 17:20] LABS: Absolute Lymphocyte Count 2.81 X10^3/uL (0.83-4.51); Absolute Neutrophil Count 8.4 X10^3/uL (2.0-7.7); Basophil# 0.04 X10^3/uL; Basophil% 0.3 % (0-1); Eosinophil# 0.11 X10^3/uL; Eosinophils% 0.9 % (0-5); Hematocrit 39.9 % (37-47); Hemoglobin 12.4 g/dL (12.0-15.0); Lymphocyte # 2.81 X10^3/ul (4.0); Lymphocyte % 22.6 % (19-41); Mean Corp Hgb Conc 31.1 g/dL (32-36); Mean Corpuscular Hgb 27.6 pg (27.0-32.0); Mean Corpuscular Volume 88.7 fL (81-99); Mean Platelet Vol. 11.8 fl (6.2-12.0); Monocyte# 0.97 X10^3/uL; Monocyte% 7.8 % (0-10); NRBC Flagged by Analyzer 0 % (0-5); Neutrophil # 8.43 X10^3/uL (2.7-7.7); Neutrophil % 67.8 % (47-70); Platelet Count 232 K/mm3 (150-450); RBC Distribution Width CV 13.2 % (11.6-14.6); RBC Distribution Width SD 42.7 fl (35.1-43.9); White Blood Count 12.4 K/mm3 (4.4-11.0)
[2020-09-07] MEDS: Oxytocin 30 units/NS 500 ml 30 UNITS/500 ML IV.SOLN 334 UNITS IV (18:16)
--- NOTE | 2020-09-07 18:20 | PCM.OPRPT ---
Problem List (1) IUGR (intrauterine growth restriction) Status: Acute (2) Active labor at term Status: Acute (3) 35 weeks gestation of Status: Acute Comment: electronic covid test ordered 08/06/2020 (scheduled for 09/07/20 at 1340) (4) Anemia affecting Status: Acute Qualifiers: Comment: h/o iron infusions with last (5) COVID-19 affecting in third trimester Status: Acute Comment: Had all symptoms in June, but did not get tested. Recommend ASA daily. Discussed growth ultrasounds, but patient declines. (6) GBS (group B streptococcus) UTI complicating Status: Acute Qualifiers: Comment: s/p treatment. plan PCN in labor (7) Influenza vaccination declined Status: Acute Comment: 04/06/2020sc (8) Status: Acute Qualifiers: Comment: declines genetic, carrier and NTD, anatomy normal (9) Pyelectasis of fetus on ultrasound Status: Acute Comment: minimal renal pyelectasis 4mm:patient opted for no further US for this (10) Supervision of other normal Status: Acute Comment: PRR FRED 09/09/2020 boy PC [facility] [place] Spouse: Maynor (11) Uterine size-date discrepancy, third trimester Status: Acute Comment: 09/07- US ordered Vaginal Delivery Maternal Presentation: Active Labor Patient began pushing hands and knees and delivered the head in the JEAN-PAUL presentation. The head was delivered atraumatically and a loose nuchal cord ?1 was identified and easily reduced over the infant's head. The anterior and posterior shoulders delivered without complication followed by the rest of the infant and the infant was placed on the maternal abdomen. Delayed cord clamping was employed for approximately 60 seconds. Cord was clamped and cut and gentle traction was applied to the cord and the placenta delivered spontaneously immediately following it was noted to be intact with three-vessel cord. The perineum and vagina were inspected and noted to have no laceration. EBL was 50. Patient and tolerated delivery well. Multi Select Codes - Urinary/Genital Urinary/Genital CPT Codes: 14823 Vaginal Delivery [facility]
[2020-09-08 04:18] VITALS: BP 122/63; PULSE 75; RESP 16; TEMP 36.4
--- NOTE | 2020-09-08 07:47 | PCM.PN.OB ---
Patient Problems: Active and Suspected Problems (Last Reviewed 09/07/20 @ 10:43 by Brenda Serrano) IUGR (intrauterine growth restriction) (Acute) Active labor at term (Acute) Uterine size-date discrepancy, third trimester (Acute) 09/07- US ordered 35 weeks gestation of (Acute) electronic covid test ordered 08/06/2020 (scheduled for 09/07/20 at 1340) COVID-19 affecting in third trimester (Acute) Had all symptoms in June, but did not get tested. Recommend ASA daily. Discussed growth ultrasounds, but patient declines. Pyelectasis of fetus on ultrasound (Acute) minimal renal pyelectasis 4mm:patient opted for no further US for this Influenza vaccination declined (Acute) 04/06/2020sc GBS (group B streptococcus) UTI complicating (Acute) s/p treatment. plan PCN in labor Anemia affecting (Acute) h/o iron infusions with last Supervision of other normal (Acute) PRR FRED 09/09/2020 boy PC [facility] [place] Spouse: Maynor (Acute) declines genetic, carrier and NTD, anatomy normal Subjective: Patient doing well without complaints. Tolerating PO. Ambulating and voiding without difficulty. Breast feeding well. Denies chest pain, shortness of breath, calf pain/swelling, fevers, chills, lightheadedness. - Physical Exam Vitals/I&O's: Vital Signs Temp Pulse Resp BP 97.6 F L 75 16 122/63 H 09/08/20 04:18 09/08/20 04:18 09/08/20 04:18 09/08/20 04:18 Oxygen Delivery Method Room Air Weight: 161 lb 6.054 oz Body Mass Index (BMI) 29.5 Intake and Output for Last 24 Hours 09/06/20 09/07/20 09/08/20 23:59 23:59 23:59 Intake Total 607.5 / 607.5 Balance 607.5 / 607.5 General: Oriented x3 Abdomen: Soft, Non Tender, - - FF below U Laboratory Results 09/07/20 16:55: WBC 12.4 H, RBC 4.50, Hgb 12.4, Hct 39.9, MCV 88.7, MCH 27.6, MCHC 31.1 L, RDW Std Deviation 42.7, RDW Coeff of Suzie 13.2, Plt Count 232, MPV 11.8, Immature Gran % (Auto) 0.600, Neut % (Auto) 67.8, Lymph % (Auto) 22.6, Davidson % (Auto) 7.8, Eos % (Auto) 0.9, Baso % (Auto) 0.3, Absolute Neuts (auto) 8.4 H, Absolute Lymphs (auto) 2.81, Nucleated RBC % 0 09/07/20 16:55: Blood Type Cancelled, Antibody Screen Cancelled 09/07/20 17:45: Blood Type O POSITIVE, Antibody Screen NEGATIVE Current Medications Acetaminophen (Acetaminophen 500 Mg Tablet) 1,000 mg PO Q8H PRN PRN PRN Reason: Pain Score 1-3 Bisacodyl (Bisacodyl 10 Mg Suppository) 10 mg RECTAL UD PRN PRN Reason: If no BM Dibucaine (Dibucaine 30 Gm Tube) 1 applic TOPICAL TID PRN PRN; Protocol PRN Reason: Discomfort Hydrocortisone (Hydrocortisone 2.5% Crm) 1 applic TOPICAL TID PRN PRN; Protocol PRN Reason: Discomfort Methylergonovine Maleate (Methylergonovine 0.2 Mg/Ml Ampul) 0.2 mg IM X1 PRN PRN Reason: Excess bleeding/uterine atony Naproxen (Naproxen 250 Mg Tablet) 500 mg PO Q8H PRN PRN PRN Reason: Pain Score 1-3 Ondansetron HCl (Ondansetron 4 Mg/2 Ml Vial) 4 mg IV Q4H PRN PRN PRN Reason: Nausea Oxycodone HCl (Oxycodone 5 Mg Tablet) 5 - 10 mg PO Q4H PRN PRN PRN Reason: Pain Score 4-10 Senna/Docusate Sodium (Senna/Docusate Sodium 1 Tablet) 1 - 2 tablet PO DAILY PRN PRN PRN Reason: Constipation Simethicone (Simethicone 80 Mg Tablet) 80 mg PO PCHS PRN PRN Reason: Indigestion/Stomach pain Sodium Chloride (0.9% Saline Lock 10 Ml Syringe) 5 - 15 ml IV UD PRN PRN Reason: SALINE FLUSH Medical Necessity - Tobacco Use Smoking Status: Never smoker Assessment/Plan All Active Problems (Last Reviewed 09/07/20 @ 10:43 by Brenda Serrano) IUGR (intrauterine growth restriction) (Acute) Active labor at term (Acute) Uterine size-date discrepancy, third trimester (Acute) 35 weeks gestation of (Acute) COVID-19 affecting in third trimester (Acute) Pyelectasis of fetus on ultrasound (Acute) Influenza vaccination declined (Acute) GBS (group B streptococcus) UTI complicating (Acute) Anemia affecting (Acute) Supervision of other normal (Acute) (Acute) Active labor at term (Resolved) Anemia in preg-unspec (Resolved) GBS (group B streptococcus) UTI complicating (Resolved) GBS urine positive (Resolved) (Resolved) Supervision of normal (Resolved) s/p PPD # 1 1. routine post delivery care 2. breast feeding- support given 3. rh positive 4. rubella immune 5. GBS positive, home tomorrow
[2020-09-08 08:33] VITALS: BP 129/77; PULSE 75; RESP 16; TEMP 36.3
[2020-09-08 11:00] VITALS: BP 125/70; PULSE 78; RESP 16; TEMP 36.3
[2020-09-08 15:29] VITALS: BP 124/77; PULSE 70; RESP 18; TEMP 36.4
[2020-09-08 19:42] VITALS: BP 121/71; PULSE 72; RESP 16; TEMP 36.4
[2020-09-09 01:15] VITALS: BP 125/77; PULSE 81; RESP 18; TEMP 36.4
[2020-09-09 07:35] VITALS: BP 123/74; PULSE 72; RESP 16; TEMP 36.1
--- NOTE | 2020-09-09 07:52 | PCM.PN.OB ---
Patient Problems: Active and Suspected Problems (Last Reviewed 09/07/20 @ 10:43 by Brenda Serrano) IUGR (intrauterine growth restriction) (Acute) Active labor at term (Acute) Uterine size-date discrepancy, third trimester (Acute) 09/07- US ordered 35 weeks gestation of (Acute) electronic covid test ordered 08/06/2020 (scheduled for 09/07/20 at 1340) COVID-19 affecting in third trimester (Acute) Had all symptoms in June, but did not get tested. Recommend ASA daily. Discussed growth ultrasounds, but patient declines. Pyelectasis of fetus on ultrasound (Acute) minimal renal pyelectasis 4mm:patient opted for no further US for this Influenza vaccination declined (Acute) 04/06/2020sc GBS (group B streptococcus) UTI complicating (Acute) s/p treatment. plan PCN in labor Anemia affecting (Acute) h/o iron infusions with last Supervision of other normal (Acute) PRR FRED 09/09/2020 boy PC [place] Spouse: Maynor (Acute) declines genetic, carrier and NTD, anatomy normal Subjective: Patient doing well without complaints. Tolerating PO. Ambulating and voiding without difficulty. Breast feeding well. Denies chest pain, shortness of breath, calf pain/swelling, fevers, chills, lightheadedness. - Physical Exam Vitals/I&O's: Vital Signs Temp Pulse Resp BP 97.0 F L 72 16 123/74 H 09/09/20 07:35 09/09/20 07:35 09/09/20 07:35 09/09/20 07:35 Oxygen Delivery Method Room Air Weight: 161 lb 6.054 oz Body Mass Index (BMI) 29.5 Intake and Output for Last 24 Hours 09/07/20 09/08/20 09/09/20 23:59 23:59 23:59 Intake Total 607.5 / 607.5 Balance 607.5 / 607.5 General: Alert, Oriented x3, Cooperative Abdomen: Soft, Non Tender, Non-Distended, - - FF below U Current Medications Acetaminophen (Acetaminophen 500 Mg Tablet) 1,000 mg PO Q8H PRN PRN PRN Reason: Pain Score 1-3 Bisacodyl (Bisacodyl 10 Mg Suppository) 10 mg RECTAL UD PRN PRN Reason: If no BM Dibucaine (Dibucaine 30 Gm Tube) 1 applic TOPICAL TID PRN PRN; Protocol PRN Reason: Discomfort Hydrocortisone (Hydrocortisone 2.5% Crm) 1 applic TOPICAL TID PRN PRN; Protocol PRN Reason: Discomfort Methylergonovine Maleate (Methylergonovine 0.2 Mg/Ml Ampul) 0.2 mg IM X1 PRN PRN Reason: Excess bleeding/uterine atony Naproxen (Naproxen 250 Mg Tablet) 500 mg PO Q8H PRN PRN PRN Reason: Pain Score 1-3 Ondansetron HCl (Ondansetron 4 Mg/2 Ml Vial) 4 mg IV Q4H PRN PRN PRN Reason: Nausea Oxycodone HCl (Oxycodone 5 Mg Tablet) 5 - 10 mg PO Q4H PRN PRN PRN Reason: Pain Score 4-10 Senna/Docusate Sodium (Senna/Docusate Sodium 1 Tablet) 1 - 2 tablet PO DAILY PRN PRN PRN Reason: Constipation Simethicone (Simethicone 80 Mg Tablet) 80 mg PO PCHS PRN PRN Reason: Indigestion/Stomach pain Sodium Chloride (0.9% Saline Lock 10 Ml Syringe) 5 - 15 ml IV UD PRN PRN Reason: SALINE FLUSH Medical Necessity - Tobacco Use Smoking Status: Never smoker Assessment/Plan All Active Problems (Last Reviewed 09/07/20 @ 10:43 by Brenda Serrano) IUGR (intrauterine growth restriction) (Acute) Active labor at term (Acute) Uterine size-date discrepancy, third trimester (Acute) 35 weeks gestation of (Acute) COVID-19 affecting in third trimester (Acute) Pyelectasis of fetus on ultrasound (Acute) Influenza vaccination declined (Acute) GBS (group B streptococcus) UTI complicating (Acute) Anemia affecting (Acute) Supervision of other normal (Acute) (Acute) Active labor at term (Resolved) Anemia in preg-unspec (Resolved) GBS (group B streptococcus) UTI complicating (Resolved) GBS urine positive (Resolved) (Resolved) Supervision of normal (Resolved) s/p PPD # 2 1. routine post delivery care 2. breast feeding- support given 3. rh positive 4. rubella immune
--- NOTE | 2020-09-09 07:53 | DCINST_ITS ---
Additional Instructions: If you experience any of the following, contact your healthcare provider. * Bleeding that soaks a pad every hour for 2 hours * Fever 100.4 or higher * Unrelieved incision or abdominal pain * Swelling, redness, discharge or bleeding from your incision or episiotomy site * Your incision begins to separate * Problems urinating (including inability to urinate or burning while urinating). * Visual changes * Severe headache * Flu-like symptoms * Pain or redness in one of both of your breasts * Pain, warmth, tenderness or swelling in your legs, especially the calf area * Frequent nausea and vomiting * Symptoms of depression or anxiety If you experience any of the following, call 911 or go to the nearest Emergency Room. * Chest pain * Problems breathing * Seizure activity * Partial or complete paralysis of a body part, slurred speech, weakness or drooping of the face, or a sudden inability to walk or hold your balance Allergies/Adverse Reactions: Allergies No Known Allergies Allergy (Verified 09/07/20 10:43) Medications to take at Discharge vitamin#30 30 mg iron-10 mg iron-folic acid 1 mg-omg3 capsule 1 cap PO DAILY cap 06/20/18 Primary Care Physician: Romel Michael MD [Primary Care Provider] - Test Results: Test results from this visit will be discussed in further detail at your follow- up appointment, if applicable.
--- NOTE | 2020-09-09 07:53 | PCM.DCVAG ---
Additional Instructions: If you experience any of the following, contact your healthcare provider. Bleeding that soaks a pad every hour for 2 hours Fever 100.4 or higher Unrelieved incision or abdominal pain Swelling, redness, discharge or bleeding from your incision or episiotomy site Your incision begins to separate Problems urinating (including inability to urinate or burning while urinating). Visual changes Severe headache Flu-like symptoms Pain or redness in one of both of your breasts Pain, warmth, tenderness or swelling in your legs, especially the calf area Frequent nausea and vomiting Symptoms of depression or anxiety If you experience any of the following, call 911 or go to the nearest Emergency Room. Chest pain Problems breathing Seizure activity Partial or complete paralysis of a body part, slurred speech, weakness or drooping of the face, or a sudden inability to walk or hold your balance Allergies/Adverse Reactions: Allergies No Known Allergies Allergy (Verified 09/07/20 10:43) Medications to take at Discharge vitamin#30 30 mg iron-10 mg iron-folic acid 1 mg-omg3 capsule 1 cap PO DAILY cap 06/20/18 Primary Care Physician: Romel Michael MD [Primary Care Provider] - Test Results: Test results from this visit will be discussed in further detail at your follow-up appointment, if applicable.
== END 2020-09-09 09:25 | disposition home or self-care (01) | DRG 806 ==
LOC: WP 16:02
PROVIDERS: Admitting Provider Obstetrics & Gynecology; PCP Family Medicine; Referring Provider Obstetrics & Gynecology; Visit Provider Obstetrics & Gynecology
DX: O36.5930 Maternal care for other known or suspected poor fetal growth, third trimester, not applicable or unspecified (principal); O98.82 Other maternal infectious and parasitic diseases complicating childbirth; Z37.0 Single live birth; O69.81X0 Labor and delivery complicated by cord around neck, without compression, not applicable or unspecified; B95.1 Streptococcus, group B, as the cause of diseases classified elsewhere; Z3A.39 39 weeks gestation of pregnancy
CPT/HCPCS: 59025; 59050; 76816; 85025; 86850; 86900; 86901; 99218; J7120; G0378

== ENCOUNTER → 2021-11-29 | Outpatient (CLI) | payer OTHER, SELFPAY ==
[2021-11-29 11:38] LABS: Amphetamine Urine VISTA NEGATIVE (<1000 ng/mL); Barbiturate Urine VISTA NEGATIVE (< 200 ng/mL); Benzodiazepine Urine VISTA NEGATIVE (< 200 ng/mL); Cocaine Urine VISTA NEGATIVE (< 300 ng/mL); Ecstacy Urine VISTA NEGATIVE (< 500 ng/mL); Methadone Urine VISTA NEGATIVE (< 300 ng/mL); PCP Urine VISTA NEGATIVE (< 25 ng/mL); THC Urine VISTA NEGATIVE (< 50 ng/mL); Vista UDS pH Range 6
[2021-11-30 22:07] LABS: Chlamydia By Nucleic Acid AMP Negative (Negative)
[2021-12-01 10:30] LABS: Gonococcus By Nucleic Acid AMP Negative (Negative)
[2021-12-02 18:19] LABS: HPV Reflexed? NOT INDICATED
== END | disposition home or self-care (01) ==
LOC: LABSPEC 11-30 09:43
PROVIDERS: PCP Family Medicine; Referring Provider Obstetrics & Gynecology; Visit Provider Obstetrics & Gynecology
DX: Z34.90 Encounter for supervision of normal pregnancy, unspecified, unspecified trimester (principal)
CPT/HCPCS: 80307; 87086; 87491; 87591; 88175; G0145

== ENCOUNTER → 2022-01-25 | Outpatient (CLI) | payer OTHER, SELFPAY ==
[2022-01-25 08:36] LABS: Absolute Lymphocyte Count 2.58 X10^3/uL (0.83-4.51); Absolute Neutrophil Count 4.4 X10^3/uL (2.0-7.7); Basophil# 0.04 X10^3/uL; Basophil% 0.5 % (0-1); Eosinophil# 0.23 X10^3/uL; Eosinophils% 2.9 % (0-5); Hemoglobin 12.2 g/dL (12.0-15.0); Lymphocyte # 2.58 X10^3/ul (0.83-4.51); Mean Corpuscular Volume 90.9 fL (81-99); Mean Platelet Vol. 9.8 fl (6.2-12.0); Monocyte# 0.55 X10^3/uL; NRBC Flagged by Analyzer 0 % (0-5); Neutrophil # 4.38 X10^3/uL (2.7-7.7); Neutrophil % 56.1 % (47-70); Platelet Count 236 K/mm3 (150-450); RBC Distribution Width SD 42.6 fl (35.1-43.9); Red Blood Count 4.07 M/mm3 (4.2-5.4); White Blood Count 7.8 K/mm3 (4.4-11.0)
[2022-01-25 09:57] LABS: HIV - WCH Non-Reactive (Nonreactive); Hepatitis B Surface Antigen Non-Reactive (Nonreactive); Hepatitis C Antibody Non-Reactive (Nonreactive); Rubella IgG Reactive (Nonreactive); Syphilis Antibodies Non-reactive
== END | disposition home or self-care (01) ==
LOC: PAVLAB 08:18
PROVIDERS: PCP Family Medicine; Referring Provider Obstetrics & Gynecology; Visit Provider Obstetrics & Gynecology
DX: Z34.90 Encounter for supervision of normal pregnancy, unspecified, unspecified trimester (principal)
CPT/HCPCS: 36415; 85025; 86703; 86762; 86780; 86803; 86850; 86900; 86901; 87340

== ENCOUNTER → 2022-02-08 | Outpatient (CLI) | payer OTHER, SELFPAY ==
--- NOTE | 2022-02-08 07:57 | US_ITS ---
EXAM: US SECOND OR THIRD TRIMESTER , TRANSABDOMINAL CLINICAL INDICATION: anatomy TECHNIQUE: Transabdominal obstetrical ultrasound of the maternal pelvis and a second or third trimester with image documentation. This report was created using [employer] report generation technology. COMPARISON: None. FINDINGS: FETUS: Single intrauterine gestation. HEART RATE: heart rate is 152 bpm. PRESENTATION: Cephalic presentation. PLACENTA: Placenta is posterior without placenta previa. AMNIOTIC FLUID: Unremarkable. ANATOMY: The lateral ventricles, choroid plexus, cerebellum, cisterna magna, face/nose/lips, four-chamber heart, diaphragm, stomach, abdominal wall, cord insertion, three-vessel cord, kidneys, bladder, entire spine, and upper and lower extremities were all visualized and appear normal. BIOMETRICS GESTATIONAL AGE: Composite gestational age is 20 weeks. FRED: 06/28/2022. EFW: Estimated weight is 347 g, 71st percentile. BPD: 20 weeks 5 days. HC: 20 weeks 1 day. AC: 20 weeks 6 days. FL: 19 weeks 2 days. MATERNAL: UTERUS: Unremarkable. No myometrial mass. CERVIX: Cervical length is 5 cm. ADNEXA: Unremarkable. No adnexal masses. FREE FLUID: None. US/OB Anatomy Scan IMPRESSION: Single live intrauterine at approximately 20 weeks. No specific abnormality. Electronically Signed: Mannie Mauro MD at 4:11 EDT ,
== END | disposition home or self-care (01) ==
PROVIDERS: Visit Provider Obstetrics & Gynecology
DX: Z34.82 Encounter for supervision of other normal pregnancy, second trimester (principal); Z3A.20 20 weeks gestation of pregnancy
CPT/HCPCS: 76805; 76817

== ENCOUNTER → 2022-04-04 | Outpatient (CLI) | payer OTHER, SELFPAY ==
[2022-04-04 09:45] LABS: Absolute Lymphocyte Count 2.25 X10^3/uL (0.83-4.51); Absolute Neutrophil Count 5.9 X10^3/uL (2.0-7.7); Basophil# 0.02 X10^3/uL; Basophil% 0.2 % (0-1); Eosinophil# 0.13 X10^3/uL; Eosinophils% 1.4 % (0-5); Hematocrit 34.3 % (37-47); Hemoglobin 11.2 g/dL (12.0-15.0); Lymphocyte # 2.25 X10^3/ul (0.83-4.51); Mean Corp Hgb Conc 32.7 g/dL (32-36); Mean Platelet Vol. 10.2 fl (6.2-12.0); Monocyte# 0.65 X10^3/uL; Monocyte% 7.2 % (0-10); NRBC Flagged by Analyzer 0 % (0-5); Neutrophil # 5.91 X10^3/uL (2.7-7.7); Neutrophil % 65.6 % (47-70); Platelet Count 234 K/mm3 (150-450); RBC Distribution Width CV 12.2 % (11.6-14.6); RBC Distribution Width SD 41.1 fl (35.1-43.9); Red Blood Count 3.73 M/mm3 (4.2-5.4)
[2022-04-04 09:58] LABS: Glucose Challenge Gest 1H 50g 83 mg/dL (70-140)
== END | disposition home or self-care (01) ==
LOC: PAVLAB 09:23
PROVIDERS: Referring Provider Obstetrics & Gynecology; Visit Provider Obstetrics & Gynecology
DX: Z34.92 Encounter for supervision of normal pregnancy, unspecified, second trimester (principal); Z3A.21 21 weeks gestation of pregnancy
CPT/HCPCS: 36415; 82950; 85025

== ENCOUNTER → 2022-06-08 | Outpatient (CLI) | payer OTHER, SELFPAY | END | disposition home or self-care (01) | LOC: LABSPEC 11:35 | PROVIDERS: Visit Provider Obstetrics & Gynecology | DX: Z34.80 Encounter for supervision of other normal pregnancy, unspecified trimester (principal) | CPT/HCPCS: 87077; 87081; 87186 ==

== ENCOUNTER 2022-06-21 23:15 | Inpatient (IN) | payer OTHER, SELFPAY ==
[2022-06-21 22:10] VITALS: PULSE 96; O2SAT 97
[2022-06-21 22:11] VITALS: BP 117/78; PULSE 106
[2022-06-21 22:12] VITALS: BMI 28.5
[2022-06-21 22:17] VITALS: TEMP 36.9
[2022-06-21] MEDS: Lactated Ringers 1,000 ML 200 ML IV (23:35)
[2022-06-21 23:48] LABS: Absolute Lymphocyte Count 4.03 X10^3/uL (0.83-4.51); Absolute Neutrophil Count 7.6 X10^3/uL (2.0-7.7); Basophil# 0.05 X10^3/uL; Basophil% 0.4 % (0-1); Eosinophil# 0.11 X10^3/uL; Eosinophils% 0.9 % (0-5); Hematocrit 37.2 % (37-47); Lymphocyte # 4.03 X10^3/ul (0.83-4.51); Lymphocyte % 31.1 % (19-41); Mean Corp Hgb Conc 32.3 g/dL (32-36); Mean Corpuscular Hgb 26.5 pg (27.0-32.0); Mean Corpuscular Volume 82.1 fL (81-99); Mean Platelet Vol. 11.5 fl (6.2-12.0); Monocyte# 1.02 X10^3/uL; Monocyte% 7.9 % (0-10); NRBC Flagged by Analyzer 0 % (0-5); Neutrophil # 7.64 X10^3/uL (2.7-7.7); Platelet Count 275 K/mm3 (150-450); RBC Distribution Width CV 12.8 % (11.6-14.6); Red Blood Count 4.53 M/mm3 (4.2-5.4); White Blood Count 12.9 K/mm3 (4.4-11.0)
[2022-06-21] MEDS: Oxytocin 10 UNITS/ML Vial IM (23:55)
[2022-06-22] VITALS (21 sets, daily range): BP systolic 108–126; BP diastolic 55–74; PULSE 64–97; RESP 16–18; TEMP 36.3–37.3; O2SAT 97–100
--- NOTE | 2022-06-22 | HP.PCM.OB_ITS ---
HPI - General General Date of Admission: 06/21/22 Date of Service: 06/22/22 Chief Complaint: contractions HPI Narrative BOONE VILLASENOR, is a 27 y/o @ 39 weeks 0d who presents to l&D in active labor. Other than GBS positive her was uncomplicated. She made cervical change from 4-5 cm in 45 minutes and declined Epidural. Maternal Data Information FRED Calculator Estimated Delivery Date Method Current WG Current Estimate 06/29/22 LMP (Certain) 39w 0d PFSH [facility] Medical History Positive GBS test Home Medications vitamin#30 30 mg iron-10 mg iron-folic acid 1 mg-omg3 capsule 1 cap PO DAILY 06/20/18 [History Last Taken 06/20/22 18:00] Allergy/AdvReac Type Severity Reaction Status Date / Time No Known Allergies Allergy Verified 06/21/22 22:12 Family History Grandmother Cancer Melanoma Unknown Hypertension Social History Smoking Status: Never smoker alcohol intake: never substance use type: does not use caffeine: Yes what type of physical activity do you participate in: walking seatbelt use: always do you feel safe at home: Yes 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 Date Name GA/Weeks Outcome Route Bth Weight Gen Labor Lgth Anesthesia Del Locatn Provider FOB Unknown 2016 Jena 39 live - full term 6lb 8oz Female 5 hours none Home plan consultant Emilia Mason 01/12/19 Chavez 39 live - full term 6lbs 9oz Female 4 hours none [facility] Hebert 09/07/20 Tk 39 live - full term Male none [facility] DOV Delivery Date: 09/07/20 Last Updated by: Nicki Cornell IUGR Visit Details Expected Delivery Route/Plan Labor Preferences- CB/BF classes: no labor support person: Maynor labor intervention preferences: [IA, ] pain management options preferred: limited intervention cut cord/dad catch: yes : yes PP control planned: vasectomy scheduled discussed possible routes of delivery and associated risks: [] special requests: [] Plans Covid status: declined Flu vaccine: declined Tdap vaccine: declined Rhogam:na LARC form signed: yes Problem list reviewed and updated with the most current plan of care details and appropriate orders placed. Relevant counseling for the gestational age provided. Continue routine care and follow up unless otherwise noted in visit notes/problem list details OB Flowsheet Initial Weight: Not Recorded Date -?-?-?-?-?-?-?-?-?-?-?-?- EGA Weight BP Urine Prot -?-?-?-?-?-?-?-?-?-?-?-?- Glucose FHR FuHt Pres Dilation -?-?-?-?-?-?-?-?-?-?-?-?- Effaced St Visit Note 11/29/21 -?-?-?-?-?-?-?-?-?-?-?-?- 9w 5d 129 lb 132/76 -?-?-?-?-?-?-?-?-?-?-?-?- 155 -?-?-?-?-?-?-?-?-?-?-?-?- SM- CRL 3.18cm c ons with LMP 12/28/21 -?-?-?-?-?-?-?-?-?-?--?-?- 13w 6d 132 lb 6 oz 130/70 Nega tive -?-?-?-?-?-?-?-?-?-?-?-?- Negative 157 -?-?-?-?-?-?-?-?-?-?-?-?- JV- no complaint s. desires anatomy to be done at [facility]. order in. bedside ultrasound measuring appropriate for dates. 01/25/22 -?-?-?-?-?-?-?-?-?-?-?-?- 17w 6d 138 lb 8 oz 126/62 Nega tive -?-?-?-?-?-?-?-?-?-?-?-?- Negative 153 -?-?-?-?-?-?-?-?-?-?-?-?- MH-No VB. Brandt mobley. Will get PN labs today. Anatomy US 02/08. Denies concerns 02/21/22 -?-?-?-?-?-?-?-?-?-?-?-?- 21w 5d 145 lb 117/71 117/71 Negative -?-?-?-?-?-?-?-?-?-?-?-?- Negative 144 -?-?-?-?-?-?-?-?-?-?-?-?- SM- no vb lof go od fm no regualr ctx 03/22/22 -?-?-?-?-?-?-?-?-?-?-?-?- 25w 6d 149 lb 6 oz 117/69 Nega tive -?-?-?-?-?-?-?-?-?-?-?-?- Negative 145 26 -?-?-?-?-?-?-?-?-?-?-?-?- SM- no vb lof go od fm no reuglar ctx 04/25/22 -?-?-?-?-?-?-?-?-?-?-?-?- 30w 5d 155 lb 2 oz 122/73 Nega tive -?-?-?-?-?-?--?-?-?-?-?-?- Negative 140 31 Cephalic -?-?-?-?-?-?-?-?-?-?-?-?- LC- no vb,lof,ct x. good fm. LC- no vb,lof,ctx. good fm. normal 28 week labs. 05/09/22 -?-?-?-?-?-?-?-?-?-?-?-?- 32w 5d 157 lb 4 oz 123/71 Nega tive -?-?-?-?-?-?-?-?-?-?-?-?- Negative 145 32 -?-?-?-?-?-?-?-?-?-?-?-?- LC- no vb,lof,ct x. good FM. pt would like to continue with fundal height measurements instead of growth u/s. currently normal measurements. 05/30/22 -?-?-?-?-?-?-?-?-?-?-?-?- 35w 5d 159 lb 3 oz 112/78 Nega tive -?-?-?-?-?-?-?-?-?-?-?-?- Negative 151 35 -?-?-?-?-?-?-?-?-?-?-?-?- MH-No VB, LOF. G ood FM. Declines growth US 06/08/22 -?-?-?-?-?-?-?-?-?-?-?-?- 37w 0d 158 lb 135/89 125/79 Negative -?-?-?-?-?-?-?-?-?-?-?-?- Negative 135 27 Cephalic 0 .5 -?-?-?-?-?-?-?-?-?--?-?-?- 50 -3 JV- no lof , vaginal bleeding, or dec fm. no complaints today. gbs collected. 06/14/22 -?-?-?-?-?-?-?-?-?-?-?-?- 37w 6d 158 lb 120/74 Negative -?-?-?-?-?-?-?-?-?-?-?-?- Negative 144 37 Cephalic 1 -?-?-?-?-?-?-?-?-?-?-?-?- -3 MH-No Vb , LOF. Good VM. Occ CTX. concerned with rapid labors and 45 min from hospital ROS Constitutional Constitutional: Denies change in weight, fatigue, fever(s), headache(s), poor appetite or weakness Eyes Eyes: Denies blurry vision, change in vision, seeing flashes or spots in vision ENT HEENT: Denies dizziness, headache(s), loss taste/smell or sore throat Cardiovascular Cardiovascular: Denies chest pain, dizziness, dyspnea, irregular heart rhythm, leg edema, palpitations, rapid heart rate or vomiting Respiratory/Chest Respiratory/Chest: Denies chest tightness, cough, dyspnea or breast pain Gastrointestinal Gastrointestinal: Denies abdominal pain, anorexia, constipation, cramping, diarrhea, hemorrhoids, vomiting or weight changes Genitourinary Genitourinary: Denies dysuria, flank pain, genital lesions, genital pain, urinary frequency or urinary urgency Musculoskeletal Musculoskeletal: Denies back pain, difficulty walking, joint pain, limited range of motion, muscle cramps or numbness Integumentary Integumentary: Denies lesions or unusual bruising Neurologic Neurologic: Denies abnormal movements, abnormal speech, dizziness, numbness, seizure-like activity or syncope Psychiatric Psychiatric: Denies anxiety, behavioral changes, change in appetite, change in libido, cognitive impairment, confusion, depression, difficulty concentrating, hallucinations or suicidal thoughts Endocrine Endocrinology: Denies excessive sweating, polydipsia or polyuria Hematologic/Lymphatic Hematologic/Lymphatic: Denies easy bleeding, easy bruising or lymphadenopathy Allergic/Immunologic Allergic/Immunologic: Denies itchy eyes, lip swelling, seasonal rhinorrhea, rhinitis, throat swelling, tongue swelling, eczemia, wheezing or asthma Vital Signs Vital Signs Vital Signs: 06/21/22 22:10 06/21/22 22:10 06/21/22 22:11 Temperature Temperature Source Pulse Rate 96 Blood Pressure 117/78 BP Systolic 117 BP Diastolic 78 Pulse Ox 97 06/21/22 22:11 06/21/22 22:17 06/21/22 22:17 Temperature 98.4 F Temperature Source Temporal Pulse Rate 106 H Blood Pressure BP Systolic BP Diastolic Pulse Ox Weight Weight: 156 lb Body Mass Index (BMI) 28.5 Physical Exam Const alert, oriented x3, no apparent distress and healthy appearing General Appearance: cooperative; Negative for anxious HEENT normocephalic Face and Sinus: normal facial exam Eyes EOMs intact bilaterally and no scleral icterus General Eye: normal appearance of both eyes Neck full ROM and supple Lymph Lymphatic: no lymphadenopathy noted Chest Chest: abnormal inspection of the chest Resp normal respiratory effort Effort and Inspection: able to speak in complete sentences Cardio regular rate GI soft to palpation and non-tender Inspection: gravid Palpation: soft; Negative for tender external exam normal Amniotic Fluid: ROM+plus Back/Spine no CVA tenderness Extremity normal to inspection, full ROM and no clubbing, cyanosis or edema General Extremity: Negative for calf tenderness or edema Skin Lesions: no lesions Rashes: no rashes Psych mental status grossly normal Labs Labs Labs: Blood Type O POSITIVE Antibody Screen NEGATIVE Hct 37.2 % (37-47) Hgb 12.0 g/dL (12.0-15.0) Obstetrics US Syphilis Total Ab Non-reactive Rubella IgG Antibody Reactive (Nonreactive) Hep Bs Antigen Non-Reactive (Nonreactive) Chlamydia DNA (ADRIANA) Negative (Negative) Neisseria gonorrhoeae DNA (ADRIANA) Negative (Negative) HIV 1&2 Antibody Non-Reactive (Nonreactive) Glucose 1 Hr 50 gm 83 mg/dL (70-140) Rhogam given: No Assessment & Plan (1) Positive GBS test: (2) History of prior with IUGR : COMMENT: growth US at 36 recommended/declines- measuring appropriate (3) : QUALIFIERS: Weeks of gestation: 37 weeks Qualified Code(s): Z3A.37 - 37 weeks gestation of COMMENT: nl anatomy, genetic and carrier declined. (4) Supervision of other normal : COMMENT: PRR FRED 06/29/22 boy PC Chavez Bella Emmett Maynor PLAN: Plan Patient presents IAL, plan expectant management for , pitocin/AROM PRN if needed. Pain management: none. GBS positive plan IV PCN. Management of any complications: none I have reviewed the [facility] and made any clinically relevant updates.
--- NOTE | 2022-06-22 00:03 | EX.PCM.OBRPT ---
Assessment & Plan (1) Positive GBS test: (2) History of prior with IUGR : COMMENT: growth US at 36 recommended/declines- measuring appropriate (3) : QUALIFIERS: Weeks of gestation: 37 weeks Qualified Code(s): Z3A.37 - 37 weeks gestation of COMMENT: nl anatomy, genetic and carrier declined. (4) Supervision of other normal : COMMENT: PRR FRED 06/29/22 boy PC JenaChavez Emmett Maynor Maternal Data Information FRED Calculator Estimated Delivery Date Method Current WG Current Estimate 06/29/22 LMP (Certain) 39w 0d Final FRED: 06/29/22 Final FRED Source: LMP Gestational age: 39 weeks 0 d Vaginal Delivery Operative Information Date of Procedure: 06/22/22 Pre-Operative Diagnosis: @ 39 weeks 0 days, active labor, GBS positive Post-Operative Diagnosis: @ 39 weeks 0 days, active labor, GBS positive, precipitous delivery Surgery / Procedure Performed: Spontaneous Vaginal Delivery Type of Anesthesia: None Estimated Blood Loss: 50cc Findings Description of Procedure: Patient began pushing and delivered the head in the OA presentation. The head was delivered atraumatically. The anterior and posterior shoulders delivered without complication followed by the rest of the and the was placed on the maternal abdomen. Delayed cord clamping was employed for approximately 60 seconds. Cord was clamped and cut and gentle traction was applied to the cord and the placenta delivered spontaneously immediately following it was noted to be intact with three-vessel cord. The perineum and vagina were inspected and noted to have no laceration. EBL was 50cc. Patient and tolerated delivery well. Presentation: Vertex Amniotic Membrane Rupture Type: Artificial Amniotic Fluid Description: Clear Placental Delivery Description: Spontaneous Placenta Disposition: [facility] Cord Vessel Description: 3 Vessels Cord Entanglement: None Infant A Gender: Male (1 minute): 7 (5 minute): 8 Delayed Cord Clamping: Yes Post Vaginal Delivery Medications Given After Delivery: - (IM pitocin) Episiotomy Description: None Laceration: None Complication Complications: None Multi Select Codes Urinary/Genital Urinary/Genital CPT Codes: 45674 Vaginal Delivery [facility]
[2022-06-22] MEDS: 0.9% Saline Lock 10 ML Syringe IV (00:04)
--- NOTE | 2022-06-22 00:05 | DCINST_ITS ---
Discharge Instructions Diet Discharge Diet: No restrictions Activity Discharge Activity: Return to Normal Activity, May Not Drive (while taking narcotic pain medications.) and May Shower May resume sexual activity in: 4-6 weeks Dressing / Incision Call your doctor if your incision/area has: Continuous Slow Oozing, Sudden Increased Bleeding, Increased Pain/ Swelling, Increased Redness and Foul Smelling Discharge Follow Up Care Please Follow Up With: Josephine Flores, DO When: Call [phone] to make an appointment with your doctor in 6 weeks. If you had elevated blood pressure or 4th degree laceration, you will need to be seen in 2 weeks. Test Results: Test results from this visit will be discussed in further detail at your follow- up appointment, if applicable. Discharge Plan Admission Admit Date/Time: 06/21/22 23:15 Attending Provider: Josephine Flores Primary Care Provider: Care Physician,No Primary Discharge Orders/Prescriptions Prescriptions: No Action vitamin#30 30 mg iron-10 mg iron-folic acid 1 mg-omg3 capsule 30 mg iron-10 mg iron-1 mg capsule 1 cap PO DAILY Referrals / Follow Up: Care Physician,No Primary [Primary Care Provider] -
--- NOTE | 2022-06-22 10:43 | PN.OBGYN_ITS ---
Subjective Subjective Patient doing well without complaints. Tolerating PO. Ambulating and voiding without difficulty. Feeding well. Denies chest pain, shortness of breath, calf pain/swelling, fevers, chills, lightheadedness. Objective Data Objective Data Vital Signs: Vital Signs Temp Pulse Resp BP Pulse Ox O2 Del Method 97.7 F L 88 18 110/60 98 Room Air 06/22/22 07:42 06/22/22 07:42 06/22/22 07:42 06/22/22 07:42 06/22/22 07:42 06/22/22 07:42 Oxygen Delivery Method Room Air Weight: 156 lb Body Mass Index (BMI) 28.5 Intake & Output: Intake and Output for Last 24 Hours 06/20/22 06/21/22 06/22/22 23:59 23:59 23:59 Intake Total 128.33 / 128.33 Output Total 600 / 600 Balance 128.33 / 128.33 -600 / -600 Lab / Micro Data Attestation: I reviewed the patient's lab results. Result Diagrams: 06/21/22 23:35 Labs: Laboratory Results - last 24 hr 06/21/22 23:35: WBC 12.9 H, RBC 4.53, Hgb 12.0, Hct 37.2, MCV 82.1, MCH 26.5 L, MCHC 32.3, RDW Std Deviation 38.0, RDW Coeff of Suzie 12.8, Plt Count 275, MPV 11.5, Immature Gran % (Auto) 0.700, Neut % (Auto) 59.0, Lymph % (Auto) 31.1, M rihci % (Auto) 7.9, Eos % (Auto) 0.9, Baso % (Auto) 0.4, Absolute Neuts (auto) 7.6, Absolute Lymphs (auto) 4.03, Nucleated RBC % 0 06/21/22 23:35: Blood Type O POSITIVE, Antibody Screen NEGATIVE ROS Constitutional Constitutional: Reports systems reviewed and no addt'l complaints, except as documented Eyes Eyes: Reports systems reviewed and no addt'l complaints, except as documented Cardiovascular Cardiovascular: Reports none Respiratory/Chest Respiratory/Chest: Reports none Gastrointestinal Gastrointestinal: Denies nausea Genitourinary Genitourinary: Denies burning urination, change in urinary stream, difficulty urinating or dysuria Psychiatric Psychiatric: Reports none Endocrine Endocrinology: Reports none Hematologic/Lymphatic Hematologic/Lymphatic: Reports none Allergic/Immunologic Allergic/Immunologic: Reports none Physical Exam Const alert, oriented x3 and no apparent distress HEENT normocephalic Eyes PERRL Chest inspection of chest normal Nipple/Areola: nipples/areola normal Resp normal respiratory effort and normal air movement GI GI Narrative: fundus firm, 1 below U. no clots, lochia rubra Extremity normal to inspection and full ROM Assessment & Plan (1) Status post vaginal delivery: COMMENT: precip delivery bartolo carlos enrique Hank, 06/22/22- JV (2) Positive GBS test: PLAN: Plan s/p PPD # 1 1. routine post delivery care 2. breast feeding- support given 3. rh positive 4. rubella immune
[2022-06-23 02:02] VITALS: BP 115/60; PULSE 88; RESP 16; TEMP 36.2
[2022-06-23 08:00] VITALS: BP 116/70; PULSE 68; RESP 15; TEMP 36.3
[2022-06-23 08:17] VITALS: BP 116/70; PULSE 68
--- NOTE | 2022-06-23 08:44 | DS.PCM_ITS ---
Providers Date of Admission: 06/21/22 Primary Care Physician: No Primary Care Phys Reason For Visit: VAG Diagnosis Discharge Diagnosis (1) Status post vaginal delivery: Status: Acute (2) Positive GBS test: Status: Acute Code(s): B95.1 - Streptococcus, group B, as the cause of diseases classified elsewhere Plan Patient presents IAL, plan expectant management for , pitocin/AROM PRN if needed. Pain management: none. GBS positive plan IV PCN. Management of any complications: none I have reviewed the [facility] and made any clinically relevant updates. Medications at Discharge Home Medications vitamin#30 30 mg iron-10 mg iron-folic acid 1 mg-omg3 capsule 1 cap PO DAILY 06/20/18 Hospital Course Operations None Procedures - (vaginal delivery ) Summary of Care Provided Minutes Spent on Discharge: 15 Hospital Course: The patient was admitted on 06/21/22 in active labor and progressed to complete and delivered a viable fetus on 06/22/22 around midnight. She recovered well with minimal bleeding on her delivery day and on post day #1 was feeling well and ready for discharge. Physical Exam Const alert, oriented x3 and no apparent distress General Appearance: cooperative and comfortable Resp normal respiratory effort Cardio regular rate GI normal to inspection, nondistended, normoactive bowel sounds GI Narrative: uterus is firm below umbilicus Palpation: soft Back/Spine no CVA tenderness and thoraco-lumbar ROM normal Extremity normal to inspection, no clubbing, cyanosis or edema, no calf tenderness and no pedal edema Psych mental status grossly normal, thought process normal, cooperative, affect normal, speech normal, activity/motor behavior normal, denies homicidal ideation and denies suicidal ideation Weight / BMI Weight Weight: 156 lb Body Mass Index (BMI) 28.5 ABG / Lab / Microbiology Data Result Diagrams: 06/21/22 23:35 D/C Instructions Discharge Diet: No restrictions May resume sexual activity in: 4-6 weeks Call your doctor if your incision/area has: Continuous Slow Oozing, Sudden Increased Bleeding, Increased Pain/ Swelling, Increased Redness and Foul Smelling Discharge Please Follow Up With: Josephine Flores DO When: Call [phone] to make an appointment with your doctor in 6 weeks. If you had elevated blood pressure or 4th degree laceration, you will need to be seen in 2 weeks. Meaningful Use Info Meaningful Use Diagnoses (Choose all that apply): None applicable Discharge Plan Admission Admit Date/Time: 06/21/22 23:15 Primary Reason for Your Visit: vaginal delivery Attending Provider: Josephine Flores Primary Care Provider: Jeanie Best Primary Discharge Orders/Prescriptions Prescriptions: No Action vitamin#30 30 mg iron-10 mg iron-folic acid 1 mg-omg3 capsule 30 mg iron-10 mg iron-1 mg capsule 1 cap PO DAILY Referrals / Follow Up: Care Physician,No Primary [Primary Care Provider] - Disposition Disposition (needs filled in before D/C Order can be placed): Home, Self Care
[2022-06-23 12:12] VITALS: BP 125/78; PULSE 68
[2022-06-23 12:31] VITALS: BP 125/78; PULSE 68; RESP 15; TEMP 36.3
== END 2022-06-23 13:00 | disposition home or self-care (01) | DRG 807 ==
LOC: WPOUT 23:24 → WP 23:24
PROVIDERS: Admitting Provider Obstetrics & Gynecology; Visit Provider Obstetrics & Gynecology
DX: O62.3 Precipitate labor (principal); Z37.0 Single live birth; B95.1 Streptococcus, group B, as the cause of diseases classified elsewhere; O99.824 Streptococcus B carrier state complicating childbirth; Z3A.39 39 weeks gestation of pregnancy
CPT/HCPCS: 59025; 59050; 85025; 86850; 86900; 86901; 99218; J7120; A4216; G0378